=== PATIENT | male | born 1960 | race Two or more races ===

== ENCOUNTER 2019-11-16 15:13 | Inpatient (IN) | payer MEDICARE, MEDICAID ==
[~2019-11-16] VITALS: Ht 185.4 cm; Wt 93.0 kg
[2019-11-16] MEDS ORDERED: LAMICTAL200 MG ORAL (15:15)
[2019-11-16 15:18] VITALS: BP 158/90
--- NOTE | 2019-11-16 15:20 | NUR ---
ED Nurse Note: pt brought in by ambulance from home due to SOB not resolving after inhaler. pt aao x4 and ambulatory. no cardiac or pulmonary distress noted at this time. pt stated "I felt like dying earlier because i could not breathe well even after inhaler." skin clean and intact. calm and cooperative. pt is in gown and on registered nurse cardiac telemetry. vss as documented.
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
[2019-11-16 16:21] LABS: POTASSIUM 3.7 MMOL/L (3.5-5.1); SODIUM 143 MMOL/L (136-145)
[2019-11-16 16:27] LABS: BASOPHILS % (AUTO) 0.7 % (0.0-2.0); EOSINOPHILS % (AUTO) 0.8 % (0.0-3.0); HEMATOCRIT 44.9 % (42.0-52.0); HEMOGLOBIN 14.9 G/DL (14.2-18.0); MEAN CORPUSCULAR VOLUME 93 FL (80-99); MONOCYTES % (AUTO) 6.4 % (1.0-10.0); NEUTROPHILS % (AUTO) 67.1 % (45.0-75.0); PLATELET COUNT 210 K/UL (150-450); RED BLOOD COUNT 4.81 M/UL (4.70-6.10); RED CELL DISTRIBUTION WIDTH 11.7 % (11.6-14.8); WHITE BLOOD COUNT 3.7 K/UL (4.8-10.8)
[2019-11-16 16:33] LABS: ANION GAP 12 mmol/L (5-15); BLOOD UREA NITROGEN 15 mg/dL (7-18); CALCIUM 9.2 MG/DL (8.5-10.1); CARBON DIOXIDE 27 MMOL/L (21-32); CHLORIDE 104 MMOL/L (98-107)
--- NOTE | 2019-11-16 16:42 | Diagnostic Imaging Report ---
EXAM: XR Chest, 1 View CLINICAL HISTORY: CP TECHNIQUE: Frontal view of the chest. COMPARISON: No relevant prior studies available. FINDINGS: Lungs: Unremarkable. No consolidation. Pleural space: Mild left lung base pleural thickening. No definite pleural effusion. No pneumothorax. Heart: Unremarkable. No cardiomegaly. Mediastinum: Unremarkable. Bones/joints: Mild degenerative changes of the spine. IMPRESSION: Mild left lung base pleural thickening, may be chronic. Otherwise unremarkable.
[2019-11-16 16:47] LABS: ALANINE AMINOTRANSFERASE 46 U/L (12-78); ALBUMIN 4.2 G/DL (3.4-5.0); ALBUMIN/GLOBULIN RATIO 1.4 (1.0-2.7); ALKALINE PHOSPHATASE 73 U/L (46-116); ASPARTATE AMINO TRANSFERASE 21 U/L (15-37); BILIRUBIN,TOTAL 0.4 MG/DL (0.2-1.0); CREATINE KINASE 74 U/L (26-308)
[2019-11-16 17:23] LABS: APPEARANCE,URINE CLEAR; BILIRUBIN, URINE NEGATIVE (NEGATIVE); GLUCOSE, URINE (UA) NEGATIVE (NEGATIVE); KETONES,URINE NEGATIVE (NEGATIVE); LEUKOCYTE ESTERASE ,URINE NEGATIVE (NEGATIVE); NITRITE,URINE NEGATIVE (NEGATIVE); PH,URINE 5 (4.5-8.0); PROTEIN,URINE NEGATIVE (NEGATIVE); UROBILINOGEN,URINE NORMAL MG/DL (0.0-1.0)
[2019-11-16 17:25] LABS: COLOR,URINE YELLOW
--- NOTE | 2019-11-16 19:03 | NUR ---
ED Nurse Note: report received from Ephraim Porras RN; pt in stable condition resting in bed. VSS.
--- NOTE | 2019-11-16 19:04 | NUR ---
HAND-OFF: Report given to GRACIELA Oliva. no orders to carry at this time.
[2019-11-16 19:20] VITALS: BP 124/64
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
--- NOTE | 2019-11-16 20:00 | NUR ---
ED Nurse Note: ERMD at bedside
--- NOTE | 2019-11-16 20:15 | NUR ---
ED Nurse Note: all medications administered; pt tolerated well, no ss of distress noted. no adverse reactions noted.
[2019-11-16 21:49] VITALS: BP_SYST 112; BP_SYST 124; BP_DIAS 66
--- NOTE | 2019-11-16 22:33 | NUR ---
ED Nurse Note: pt resting in bed, no ss of distress noted. vss.
--- NOTE | 2019-11-16 22:35 | NUR ---
ED Nurse Note: Pt moved to hospital bed. VSS no ss of distress noted.
[2019-11-16 22:50] VITALS: BP 112/72
--- NOTE | 2019-11-16 23:30 | NUR ---
ED Nurse Note: Repeat troponin sent to lab.
[2019-11-17] VITALS (8 sets, daily range): BP systolic 110–136; BP diastolic 64–90
--- NOTE | 2019-11-17 00:46 | NUR ---
ED Nurse Note: pt resting in bed. no ss of distress noted.
--- NOTE | 2019-11-17 02:35 | NUR ---
ED Nurse Note: pt sleeping in bed, no ss of distress noted. vss.
--- NOTE | 2019-11-17 04:10 | NUR ---
ED Nurse Note: pt sleeping in bed. vss no ss of distress noted.
--- NOTE | 2019-11-17 06:38 | NUR ---
ED Nurse Note: Repeat troponin sent to lab
--- NOTE | 2019-11-17 07:14 | NUR ---
ED Nurse Note: report given to GRACIELA Lozano
--- NOTE | 2019-11-17 07:51 | NUR ---
ED Nurse Note: Repor given to Glo OWENS
--- NOTE | 2019-11-17 08:00 | NUR ---
NURSE NOTES: Received patient from E.R via bed, report was given by GRACIELA Lozano. Transferred to room 218-2. PAtient is alert and oriented x 4. Roy patient to room and telemetry unit. youth nutritional monitor is in placed. Patient is on sinus rhythm at this time. Patient is on cardiac diet-instructed. IV site on left AC g-20 saline lock that is patent and intact. Belonging lists checked and signed. No signs and symptoms of respiratory distress at the moment. Safety measures are in placed. Call light and bedside table within reach, bed in lowest and locked position. Encouraged to call for assitance. Plan opf care discussed, verbalized understanding.
--- NOTE | 2019-11-17 11:22 | NUR ---
NURSE NOTES: Received order from Dr. Garcia, patient is schedule for dialysis tomorrow, November 16, 2019. Secured consent, available at chart. Called [facility] and spoke to leticia and he'll call the HD nurse. Addendum: 11/17/19 at 1216 by Glo Pepe RN wrong entry.
[2019-11-17] MEDS: LaMICtal 150mg tab ORAL SCH (14:34)
--- NOTE | 2019-11-17 19:27 | NUR ---
HAND-OFF: Report given to Deepika OWENS. Patient is on stable condition, plan of care endorsed.
--- NOTE | 2019-11-17 20:08 | NUR ---
NURSE NOTES: Received report from Glo RN and GRACIELA Soria. Patient on semi-walsh's position. No signs of acute distress or shortness of breath. Currently on 2L of oxygen per nasal cannula. IV site intact and flushed. No erythema, bleeding, or infiltration. Bed in lowest position. Brakes engaged. Side rails x2 raised. Call light placed within reach.
--- NOTE | 2019-11-17 20:30 | History and Physical Report ---
DATE OF ADMISSION: 11/17/2019 HISTORY OF PRESENT ILLNESS: The patient comes in because of chest pain and shortness of breath, admitted to rule out acute coronary syndrome. The patient has been having episodes of shortness of breath and chest pain off and on. He states that it has been going on for a while, but at this time, it was worse in severity. The patient also has history of PTSD as well as anxiety. He denies feeling of doom, however, did have chest pressure and also has had some neck pain as well as some presyncopal episodes, symptoms like dizziness and lightheadedness, however, no syncopal episode. The patient was discharged from the emergency room approximately two weeks ago and nothing was found. The patient does have history of smoking and also uses THC as well and also takes Lamictal for anxiety. Denies sore throat. He does have some dry cough and anxiety for the past couple of days. Denies fever or chills. He is admitted for rule-out acute coronary syndrome and also for SOB workup. The patient complains of belching. He denies heartburn. PAST MEDICAL HISTORY: PTSD, anxiety, and has had history of bipolar as well. Past medical history also significant as before mentioned and also rectal cancer. PAST SURGICAL HISTORY: Removal of rectal cancer and ear surgery. SOCIAL HISTORY: He does have history of smoking. Does have history of marijuana. Denies history of alcohol abuse. ALLERGIES: Allergies to . MEDICATIONS: The patient takes Lamictal. FAMILY HISTORY: Noncontributory. REVIEW OF SYSTEMS: HEENT: Denies headaches. RESPIRATORY: Reports shortness of breath and dry cough for days. CARDIOVASCULAR: Reports chest pain with neck pain. No radiation to the arm. Denies palpitation. Denies wheezing. He does have dry cough for the past couple of days. GASTROINTESTINAL: Reports belching. No heartburn. No nausea or vomiting. No rectal bleeding. EXTREMITIES: Denies pain in lower extremities. CENTRAL NERVOUS SYSTEM: Denies change in speech pattern. PHYSICAL EXAMINATION: VITAL SIGNS: Temperature is 97, pulse is 69, blood pressure is 111/64. HEENT: PERRLA. NECK: Supple. No lymphadenopathy. CHEST: Clear to auscultation. CARDIOVASCULAR: Regular rate and rhythm. No murmurs or extra sounds. GASTROINTESTINAL: Soft, nontender, nondistended. No organomegaly. EXTREMITIES: No edema. Moves all four extremities. Sensory intact to light touch. Reflexes equal on both sides. Moves all four extremities. Dorsalis pedis pulses are present. LABORATORY AND DIAGNOSTIC DATA: Chest x-ray is normal. WBC of 3.7, hemoglobin of 14.9, platelets of 210,000. Sodium 143, potassium 3.7, BUN of 15, creatinine of 1, glucose of 146. Troponin 0.011. EKG, no significant changes. ASSESSMENT AND PLAN: 1. Chest pain, rule out acute coronary syndrome. 2. Near-syncope. 3. Shortness of breath. 4. Anxiety. 5. PTSD. I have asked Dr. Rucker, Dr. Marion, and Dr. Black to see the patient to help with the management of the above-mentioned symptoms, diagnoses, and abnormalities. We will try to rule out for acute coronary syndrome. Stress studies will be deferred per Dr. Ruiz. Abran Snow M.D. DR: RAFAEL JOB#: [id number] CC:
[2019-11-17] MEDS ORDERED: LORazepam 0.5mg tab ORAL PRN (23:00)
[2019-11-18] VITALS: BP 118/73
--- NOTE | 2019-11-18 00:15 | Consultation ---
DATE OF CONSULTATION: 11/17/2019 CONSULTING PHYSICIAN: Mendez Black M.D. HISTORY OF PRESENT ILLNESS: This is a 59-year-old male with a history of bipolar disorder, anxiety, PTSD, rectal cancer, who has been admitted to the hospital due to shortness of breath and chest pain. The patient is presenting with dizziness, lightheadedness, and anxiety. The patient takes Lamictal for bipolar disorder. Depressive symptoms are stable. He denies any suicidal or homicidal ideation. PAST PSYCHIATRIC HISTORY: Bipolar disorder. PAST MEDICAL HISTORY: As above. ALLERGIES: Steroids. SUBSTANCE ABUSE HISTORY: The patient is a smoker. No illicit drug use or alcohol. MENTAL STATUS EXAMINATION: He is alert and oriented to self, place, and situation. Mood is depressed. Affect is constricted, congruent with mood. Thought process is concrete. Thought content, no suicidal or homicidal ideation. Cognition is intact. Insight and judgment is fair. ASSESSMENT: AXIS I: Bipolar disorder. AXIS II: Deferred. AXIS III: As above. AXIS IV: Low. AXIS V: 50. PLAN: 1. Lamictal 300 mg daily. 2. Ativan p.r.n. 3. Provide the patient with reality orientation and supportive therapy. Mendez Black M.D. DR: WOLF JOB#: [id number] CC: LORNA
[2019-11-18 04:00] VITALS: BP 118/69
--- NOTE | 2019-11-18 04:49 | NUR ---
NURSE NOTES: Patient is asleep on bed. Vital signs stable. able to make needs known. Needs met. Call light placed within reach. Will continue to monitor.
--- NOTE | 2019-11-18 07:13 | NUR ---
HAND-OFF: Report given to GRACIELA Lau. Plan of care endorsed.
[2019-11-18 07:38] LABS: BASOPHILS % (AUTO) 1.4 % (0.0-2.0); EOSINOPHILS % (AUTO) 2.4 % (0.0-3.0); HEMATOCRIT 42.3 % (42.0-52.0); HEMOGLOBIN 14.9 G/DL (14.2-18.0); LYMPHOCYTES % (AUTO) 36.6 % (20.0-45.0); MEAN CORPUSCULAR VOLUME 90 FL (80-99); MONOCYTES % (AUTO) 10.1 % (1.0-10.0); NEUTROPHILS % (AUTO) 49.4 % (45.0-75.0); PLATELET COUNT 205 K/UL (150-450); RED BLOOD COUNT 4.67 M/UL (4.70-6.10); RED CELL DISTRIBUTION WIDTH 10.6 % (11.6-14.8); WHITE BLOOD COUNT 4.1 K/UL (4.8-10.8)
--- NOTE | 2019-11-18 07:41 | NUR ---
NURSE NOTES: Received report from GRACIELA Poole. Patient in bed resting, no active s/s cardiac, respiratory distress noticed at this time. Patient AOx4, SR with HR 63, on room air. IV on left AC 20G, asymptomatic, patent, intact. Bed in lowest position, side rails upx2, call light within reach. Will continue to monitor.
[2019-11-18 08:00] VITALS: BP 123/81
[2019-11-18 08:19] LABS: ALANINE AMINOTRANSFERASE 42 U/L (12-78); ALBUMIN 3.7 G/DL (3.4-5.0); ALBUMIN/GLOBULIN RATIO 1.3 (1.0-2.7); ALKALINE PHOSPHATASE 70 U/L (46-116); ANION GAP 10 mmol/L (5-15); ASPARTATE AMINO TRANSFERASE 17 U/L (15-37); BILIRUBIN,TOTAL 0.3 MG/DL (0.2-1.0); BLOOD UREA NITROGEN 14 mg/dL (7-18); CALCIUM 9.3 MG/DL (8.5-10.1); CARBON DIOXIDE 25 MMOL/L (21-32); CHLORIDE 108 MMOL/L (98-107); CREATININE 0.9 MG/DL (0.55-1.30); POTASSIUM 4.1 MMOL/L (3.5-5.1); SODIUM 143 MMOL/L (136-145)
[2019-11-18] MEDS: LaMICtal 150mg tab ORAL SCH (08:42)
[2019-11-18 12:00] VITALS: BP 143/87
--- NOTE | 2019-11-18 13:06 | NUR ---
CASE MANAGEMENT: INITIAL REVIEW 59YR OLD MALE BIBA FROM HOME CC: CHEST PAIN AND SOB/ DRY COUGH AND CHILLS FOR MORE THAN 2 WEEKS SI:CHEST PAIN 97.0 108 16 158/90 98% ON RA WBC 3.7 BG 146 IS:IVF NS BOLUS X1 ASA PO X1 MOTRIN PO X1 CHEST X-RAY- Mild left lung base pleural thickening, may be chronic \: 2E TELE UNIT CASE MANAGEMENT: REVIEW 11/18/19 SI:CHEST PAIN . NEAR SYNCOPE 98.1 74 18 143/87 99% ON 1L CL- 108 WBC 4.1 IS:LAMICTAL PO QD TYLENOL PO Q4HR/PRN \: 2E TELE UNIT
--- NOTE | 2019-11-18 13:41 | Cardiac Electrophysiology PN ---
Subjective Subjective [id number] Objective Last 24 Hour Vital Signs Date Time Temp Pulse Resp B/P (MAP) Pulse Ox O2 Delivery O2 Flow Rate FiO2 11/18/19 12:00 1.0 11/18/19 12:00 66 11/18/19 12:00 98.1 74 18 143/87 (105) 99 11/18/19 09:00 Nasal Cannula 1.0 11/18/19 08:00 98.1 68 18 123/81 (95) 98 11/18/19 08:00 1.0 11/18/19 08:00 67 11/18/19 04:00 98.2 63 18 118/69 (85) 99 11/18/19 04:00 1.0 11/18/19 04:00 58 11/18/19 00:00 0.5 11/18/19 00:00 97.9 65 18 118/73 (88) 98 11/18/19 00:00 68 11/17/19 21:00 Nasal Cannula 1.0 11/17/19 20:00 0.5 11/17/19 20:00 98.1 76 18 116/65 (82) 98 11/17/19 20:00 70 11/17/19 16:00 98.1 69 18 120/76 (91) 98 11/17/19 16:00 0.5 11/17/19 16:00 72 Intake and Output 11/17/19 11/18/19 19:00 07:00 Intake Total 360 ml 240 ml Balance 360 ml 240 ml Intake Oral 360 ml 240 ml # Voids 2 1 Laboratory Tests Test 11/18/19 06:50 White Blood Count 4.1 K/UL (4.8-10.8) L Red Blood Count 4.67 M/UL (4.70-6.10) L Hemoglobin 14.9 G/DL (14.2-18.0) Hematocrit 42.3 % (42.0-52.0) Mean Corpuscular Volume 90 FL (80-99) Mean Corpuscular Hemoglobin 31.9 PG (27.0-31.0) H Mean Corpuscular Hemoglobin Concent 35.2 G/DL (32.0-36.0) Red Cell Distribution Width 10.6 % (11.6-14.8) L Platelet Count 205 K/UL (150-450) Mean Platelet Volume 6.3 FL (6.5-10.1) L Neutrophils (%) (Auto) 49.4 % (45.0-75.0) Lymphocytes (%) (Auto) 36.6 % (20.0-45.0) Monocytes (%) (Auto) 10.1 % (1.0-10.0) H Eosinophils (%) (Auto) 2.4 % (0.0-3.0) Basophils (%) (Auto) 1.4 % (0.0-2.0) Sodium Level 143 MMOL/L (136-145) Potassium Level 4.1 MMOL/L (3.5-5.1) Chloride Level 108 MMOL/L (98-107) H Carbon Dioxide Level 25 MMOL/L (21-32) Anion Gap 10 mmol/L (5-15) Blood Urea Nitrogen 14 mg/dL (7-18) Creatinine 0.9 MG/DL (0.55-1.30) Estimat Glomerular Filtration Rate > 60 mL/min (>60) Glucose Level 98 MG/DL (74-106) Calcium Level 9.3 MG/DL (8.5-10.1) Total Bilirubin 0.3 MG/DL (0.2-1.0) Aspartate Amino Transf (AST/SGOT) 17 U/L (15-37) Alanine Aminotransferase (ALT/SGPT) 42 U/L (12-78) Alkaline Phosphatase 70 U/L (46-116) Troponin I 0.000 ng/mL (0.000-0.056) Total Protein 6.6 G/DL (6.4-8.2) Albumin 3.7 G/DL (3.4-5.0) Globulin 2.9 g/dL Albumin/Globulin Ratio 1.3 (1.0-2.7) Luis Rucker MD Nov 18, 2019 13:40
[2019-11-18] MEDS ORDERED: Lexiscan 0.4mg/5ml syringe IV PRN (13:45)
[2019-11-18 16:00] VITALS: BP 132/90
--- NOTE | 2019-11-18 16:15 | Consultation ---
DATE OF CONSULTATION: 11/18/2019 CARDIOLOGY CONSULTATION CONSULTING PHYSICIAN: Luis Rucker M.D. REFERRING PHYSICIAN: Abran Snow M.D. REASON FOR CONSULTATION: Chest pain and shortness of breath. HISTORY OF PRESENT ILLNESS: The patient is a very pleasant 59-year-old gentleman with history of bipolar disorder, no diabetes or hypertension, presented to the emergency room with extreme shortness of breath and chest pain. The patient stated that he felt like he was dying. He also has history of anxiety. The patient stated that he had similar symptoms in 2010 and had a stress test at [place] that was normal. The patient was also evaluated 12 days ago in a different hospital and chest x-ray and blood work was done, and the patient was discharged. The patient uses THC. The last use was about 10 days ago. The patient's EKG showed normal sinus rhythm, otherwise normal electrocardiogram, and a Cardiology consultation was obtained for further evaluation and management. REVIEW OF SYSTEMS: Negative other than what was mentioned in the history of present illness. PAST MEDICAL HISTORY: As mentioned above. FAMILY HISTORY: Noncontributory. SOCIAL HISTORY: He denies smoke or drinking alcohol, though he uses THC. MEDICATIONS: Per reconciliation. PHYSICAL EXAMINATION: VITAL SIGNS: Blood pressure 143/87, pulse 74, respirations 18, and temperature 98.1. HEAD AND NECK: Showed no JVD. LUNGS: Clear. CARDIOVASCULAR: Shows regular S1 and S2 with no gallop or murmur. ABDOMEN: Soft. EXTREMITIES: No pitting edema. LABORATORY AND DIAGNOSTIC DATA: His labs show white count of 4.1, hemoglobin of 15, hematocrit 42, and platelet count 205,000. Sodium 142, potassium 4.1, BUN 14, and creatinine 0.9. Troponin negative x4. ASSESSMENT AND PLAN: 1. Chest pain. The pain is atypical. EKG is completely normal. The patient already was ruled out completely for myocardial infarction. We will order echocardiogram and schedule the patient for stress test for further evaluation and management. It is of note that his chest x-ray also showed mild left lung base pleural thickening, otherwise normal. 2. Bipolar disorder, on Lamictal 200 mg daily. 3. Shortness of breath. Echocardiogram is pending, but has no known history of congestive heart failure and his BNP is only 15. Thank you very much, Dr. Snow, for allowing me to participate in the care of this patient. Please do not hesitate to contact me for any questions regarding my evaluation. Luis Rucker M.D. DR: REESE JOB#: [id number] CC:
--- NOTE | 2019-11-18 17:42 | NUR ---
NURSE NOTES: Dr. Snow made aware patient c/o generalized pain 04/06, and patient refused Tylenol prn . No new order at this time. Will continue to monitor.
--- NOTE | 2019-11-18 17:58 | NUR ---
NURSE NOTES: Per Dr. Snow, Dr. White on the case. Paged Dr. White, Hari MG called back, no new order received at this time.
--- NOTE | 2019-11-18 19:21 | NUR ---
HAND-OFF: Report given to GRACIELA Larsen. Endorsed plan of care.
--- NOTE | 2019-11-18 20:04 | NUR ---
NURSE NOTES: Report received from Judi OWENS. Patient is observed in bed, awake, alert, roeinted, and able to make needs known. Respiratory even and unlabored. IV site is asymptomatic, patent, and intact. Bed is in lowest position with side rails up x2 and brakes are engaged. Patient refuses bed alarm. Call light and personal belongings are within reach. Will continue to monitor.
[2019-11-18 20:09] VITALS: BP 140/85
--- NOTE | 2019-11-18 20:49 | General Progress Note ---
Assessment/Plan Problem List: (1) Chest pain ICD Codes: R07.9 - Chest pain, unspecified SNOMED: 22538966 Qualifiers: Qualified Codes: R07.9 - Chest pain, unspecified (2) PTSD (post-traumatic stress disorder) ICD Codes: F43.10 - Post-traumatic stress disorder, unspecified SNOMED: 17119069 (3) Acute coronary syndrome ICD Codes: I24.9 - Acute ischemic heart disease, unspecified SNOMED: 439071943 (4) Near syncope ICD Codes: R55 - Syncope and collapse SNOMED: 080638144 Status: progressing Assessment/Plan: r/p acs cp anxiety ptsd check trop Subjective ROS Limited/Unobtainable: Yes Allergies: Uncoded Allergies: STEROID (Allergy, Unknown, 11/16/19) Objective Last 24 Hour Vital Signs Date Time Temp Pulse Resp B/P (MAP) Pulse Ox O2 Delivery O2 Flow Rate FiO2 11/18/19 20:09 97.2 65 16 140/85 (103) 97 11/18/19 20:07 Nasal Cannula 1.0 11/18/19 16:00 72 11/18/19 16:00 98.2 70 18 132/90 (104) 97 11/18/19 16:00 1.0 11/18/19 12:00 1.0 11/18/19 12:00 66 11/18/19 12:00 98.1 74 18 143/87 (105) 99 11/18/19 09:00 Nasal Cannula 1.0 11/18/19 08:00 98.1 68 18 123/81 (95) 98 11/18/19 08:00 1.0 11/18/19 08:00 67 11/18/19 04:00 98.2 63 18 118/69 (85) 99 11/18/19 04:00 1.0 11/18/19 04:00 58 11/18/19 00:00 0.5 11/18/19 00:00 97.9 65 18 118/73 (88) 98 11/18/19 00:00 68 11/17/19 21:00 Nasal Cannula 1.0 Intake and Output 11/17/19 11/18/19 19:00 07:00 Intake Total 360 ml 240 ml Balance 360 ml 240 ml Intake Oral 360 ml 240 ml # Voids 2 1 Laboratory Tests 11/18/19 06:50: White Blood Count 4.1L, Red Blood Count 4.67L, Hemoglobin 14.9, Hematocrit 42.3 , Mean Corpuscular Volume 90, Mean Corpuscular Hemoglobin 31.9H, Mean Corpuscular Hemoglobin Concent 35.2, Red Cell Distribution Width 10.6L, Platelet Count 205, Mean Platelet Volume 6.3L, Neutrophils (%) (Auto) 49.4, Lymphocytes (%) (Auto) 36.6, Monocytes (%) (Auto) 10.1H, Eosinophils (%) (Auto) 2.4, Basophils (%) (Auto) 1.4, Sodium Level 143, Potassium Level 4.1, Chloride Level 108H, Carbon Dioxide Level 25, Anion Gap 10, Blood Urea Nitrogen 14, Creatinine 0.9, Estimat Glomerular Filtration Rate > 60, Glucose Level 98, Calcium Level 9.3, Total Bilirubin 0.3, Aspartate Amino Transf (AST/SGOT) 17, Alanine Aminotransferase (ALT/SGPT) 42, Alkaline Phosphatase 70, Troponin I 0.000, Total Protein 6.6, Albumin 3.7, Globulin 2.9, Albumin/Globulin Ratio 1.3 Height (Feet): 6 Height (Inches): 1.00 Weight (Pounds): 215 Cardiovascular: normal rate Respiratory/Chest: lungs clear Abdomen: soft Abran Snow MD Nov 18, 2019 20:49
[2019-11-19] VITALS: BP 137/72
--- NOTE | 2019-11-19 00:46 | NUR ---
NURSE NOTES: Patient is asleep but arousable by voice. Respiratory even and unlabored. No c/o pain and/or discomfort at this time. Will continue to monitor.
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
[2019-11-19 04:00] VITALS: BP 109/82
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
[2019-11-19 07:27] LABS: BASOPHILS % (AUTO) 0.9 % (0.0-2.0); EOSINOPHILS % (AUTO) 1.6 % (0.0-3.0); HEMATOCRIT 45.8 % (42.0-52.0); HEMOGLOBIN 16.2 G/DL (14.2-18.0); LYMPHOCYTES % (AUTO) 29.8 % (20.0-45.0); MEAN CORPUSCULAR VOLUME 90 FL (80-99); MONOCYTES % (AUTO) 9.1 % (1.0-10.0); NEUTROPHILS % (AUTO) 58.6 % (45.0-75.0); PLATELET COUNT 234 K/UL (150-450); RED CELL DISTRIBUTION WIDTH 10.2 % (11.6-14.8); WHITE BLOOD COUNT 6.5 K/UL (4.8-10.8)
--- NOTE | 2019-11-19 07:30 | NUR ---
NURSE NOTES: Received pt from CHRISSY OWENS. Pt is awake and orient, pt is in RA, no SOB or acute respiratory distress noted. pt has intact iv access LAC 22G SL.Pt is NPO due to stress test. Pt is on continues heart monitoring. all needs attended, bed is locked and is in the lowest position, call light within easy reach. will continue to monitor.
--- NOTE | 2019-11-19 07:51 | NUR ---
HAND-OFF: Report given to Cain OWENS. Patient is in stable condition. Endorsed plan of care.
[2019-11-19 08:00] VITALS: BP 129/82
[2019-11-19] MEDS: LaMICtal 150mg tab ORAL SCH (09:00)
--- NOTE | 2019-11-19 11:05 | Diagnostic Imaging Report ---
Indication: Abdominal pain Technique: Grayscale and duplex Doppler imaging of the abdomen performed. Comparison: None Findings: The liver is echogenic consistent with fatty infiltration. Doppler interrogation of the main portal vein shows patency with hepatopedal, monophasic flow. There is no biliary ductal dilatation identified. Gallbladder is unremarkable. CBD is 2.8 mm. There demonstrated part of the pancreas, aorta and IVC show no definite abnormalities. Both kidneys appear unremarkable. There is no hydronephrosis. IMPRESSION: Fatty liver
--- NOTE | 2019-11-19 11:34 | Cardiac Electrophysiology PN ---
Assessment/Plan Assessment/Plan 1. Atyical Chest pain. EKG is completely normal. The patient already was ruled out completely for myocardial infarction. Echocardiogram NL EF and stress test results from today is pending. 2. Bipolar disorder, on Lamictal 200 mg daily. 3. Shortness of breath. Echocardiogram Nl EF but has no known history of congestive heart failure and his BNP is only 15. DW RN Subjective Subjective No CP or SOB. Stress test in progress Objective Last 24 Hour Vital Signs Date Time Temp Pulse Resp B/P (MAP) Pulse Ox O2 Delivery O2 Flow Rate FiO2 11/19/19 08:00 96.8 68 18 129/82 (98) 98 11/19/19 07:45 63 11/19/19 04:00 97.7 74 16 109/82 (91) 97 11/19/19 03:33 59 11/19/19 00:00 96.6 65 16 137/72 (93) 97 11/18/19 23:28 59 11/18/19 20:09 97.2 65 16 140/85 (103) 97 11/18/19 20:07 Nasal Cannula 1.0 11/18/19 19:00 70 11/18/19 16:00 72 11/18/19 16:00 98.2 70 18 132/90 (104) 97 11/18/19 16:00 1.0 11/18/19 12:00 1.0 11/18/19 12:00 66 11/18/19 12:00 98.1 74 18 143/87 (105) 99 Intake and Output 11/18/19 11/19/19 19:00 07:00 Intake Total 1000 ml Balance 1000 ml Intake Oral 1000 ml # Voids 4 2 # Bowel Movements 2 Laboratory Tests Test 11/19/19 06:35 White Blood Count 6.5 K/UL (4.8-10.8) # Red Blood Count 5.10 M/UL (4.70-6.10) Hemoglobin 16.2 G/DL (14.2-18.0) Hematocrit 45.8 % (42.0-52.0) Mean Corpuscular Volume 90 FL (80-99) Mean Corpuscular Hemoglobin 31.8 PG (27.0-31.0) H Mean Corpuscular Hemoglobin Concent 35.4 G/DL (32.0-36.0) Red Cell Distribution Width 10.2 % (11.6-14.8) L Platelet Count 234 K/UL (150-450) Mean Platelet Volume 6.3 FL (6.5-10.1) L Neutrophils (%) (Auto) 58.6 % (45.0-75.0) Lymphocytes (%) (Auto) 29.8 % (20.0-45.0) Monocytes (%) (Auto) 9.1 % (1.0-10.0) Eosinophils (%) (Auto) 1.6 % (0.0-3.0) Basophils (%) (Auto) 0.9 % (0.0-2.0) Hepatitis A IgM Antibody Pending Hepatitis B Surface Antigen Pending Hepatitis B Core IgM Antibody Pending Hepatitis C Antibody Pending HIV (1&2) Antibody Rapid Negative (NEGATIVE) Objective HEAD AND NECK: No JVD. LUNGS: Clear. CARDIOVASCULAR: Regular S1 and S2 with no gallop or murmur. ABDOMEN: Soft. EXTREMITIES: No pitting edema. Luis Rucker MD Nov 19, 2019 11:34
[2019-11-19 12:00] VITALS: BP 126/85
--- NOTE | 2019-11-19 12:33 | Consultation ---
History of Present Illness General Date patient seen: Nov 19, 2019 Chief Complaint: Present Illness Allergies: Uncoded Allergies: STEROID (Allergy, Unknown, 11/16/19) Medication History Scheduled Lamotrigine (Lamictal), 300 MG ORAL DAILY, (Reported) Patient History Healthcare decision maker Resuscitation status Full Code Advanced Directive on File No Physical Exam Last 24 Hour Vital Signs Date Time Temp Pulse Resp B/P (MAP) Pulse Ox O2 Delivery O2 Flow Rate FiO2 11/19/19 12:00 98.1 78 18 126/85 (99) 95 11/19/19 09:00 Nasal Cannula 1.0 11/19/19 08:00 96.8 68 18 129/82 (98) 98 11/19/19 07:45 63 11/19/19 04:00 97.7 74 16 109/82 (91) 97 11/19/19 03:33 59 11/19/19 00:00 96.6 65 16 137/72 (93) 97 11/18/19 23:28 59 11/18/19 20:09 97.2 65 16 140/85 (103) 97 11/18/19 20:07 Nasal Cannula 1.0 11/18/19 19:00 70 11/18/19 16:00 72 11/18/19 16:00 98.2 70 18 132/90 (104) 97 11/18/19 16:00 1.0 Intake and Output 11/18/19 11/19/19 19:00 07:00 Intake Total 1000 ml Balance 1000 ml Intake Oral 1000 ml # Voids 4 2 # Bowel Movements 2 Laboratory Tests Test 11/19/19 06:35 White Blood Count 6.5 K/UL (4.8-10.8) # Red Blood Count 5.10 M/UL (4.70-6.10) Hemoglobin 16.2 G/DL (14.2-18.0) Hematocrit 45.8 % (42.0-52.0) Mean Corpuscular Volume 90 FL (80-99) Mean Corpuscular Hemoglobin 31.8 PG (27.0-31.0) H Mean Corpuscular Hemoglobin Concent 35.4 G/DL (32.0-36.0) Red Cell Distribution Width 10.2 % (11.6-14.8) L Platelet Count 234 K/UL (150-450) Mean Platelet Volume 6.3 FL (6.5-10.1) L Neutrophils (%) (Auto) 58.6 % (45.0-75.0) Lymphocytes (%) (Auto) 29.8 % (20.0-45.0) Monocytes (%) (Auto) 9.1 % (1.0-10.0) Eosinophils (%) (Auto) 1.6 % (0.0-3.0) Basophils (%) (Auto) 0.9 % (0.0-2.0) Hepatitis A IgM Antibody Pending Hepatitis B Surface Antigen Pending Hepatitis B Core IgM Antibody Pending Hepatitis C Antibody Pending HIV (1&2) Antibody Rapid Negative (NEGATIVE) Height (Feet): 6 Height (Inches): 1.00 Weight (Pounds): 215 Medications Current Medications Medications (Trade) Dose Ordered Sig/Aaron Route PRN Reason Start Time Stop Time Status Last Admin Dose Admin Acetaminophen (Tylenol) 650 mg Q4H PRN ORAL Mild Pain/Temp > 100.5 11/17/19 08:30 12/17/19 08:29 11/18/19 18:34 Lamotrigine (LaMICtal) 300 mg DAILY ORAL 11/17/19 14:00 01/01/20 13:59 11/18/19 08:42 Lorazepam (Ativan) 1 mg Q6H PRN ORAL For Anxiety 11/17/19 23:00 11/24/19 22:59 Regadenoson (Lexiscan) 0.4 mg ONCE PRN IV STRESS TEST 11/18/19 13:45 02/16/20 13:44 11/19/19 10:58 Assessment/Plan Assessment/Plan: (1) Chest pain (2) R/O ACS seen dictated Hari Gaona Nov 19, 2019 12:33
--- NOTE | 2019-11-19 14:33 | Diagnostic Imaging Report ---
Indication: chest pain Technique: The study was conducted under the supervision of a lead net software developer. lexiscan (regadenoson) infusion over 10 seconds followed by intravenous administration of 30.9 mCi of technetium 99m Myoview was performed. Three plane SPECT imaging of the heart was then performed. A resting study was performed as part of the one-day protocol with 10.6 mCi of technetium 99m myoview injected intravenously at that time. Three plane SPECT imaging of the heart was obtained. Comparison: None Clinical data: 1. Clinical response: Non ischemic 2. Electrocardiographic response: Non ischemic Findings: The myocardial perfusion scan demonstrates LVEF 66%. No fixed or reversible perfusion defects are appreciated. IMPRESSION: Negative myocardial perfusion scan
[2019-11-19 15:53] VITALS: BP 119/60
--- NOTE | 2019-11-19 18:00 | Consultation ---
DATE OF CONSULTATION: 11/19/2019 PAIN MANAGEMENT CONSULTATION CONSULTING PHYSICIAN: Daysi White M.D. REFERRING PHYSICIAN: Abran Snow M.D. PHYSICIAN BARREL INSPECTOR: SAURAV Ibanez CHIEF COMPLAINT: Chest pain. HISTORY OF PRESENT ILLNESS: This is a 59-year-old male who is being seen on telemetry floor of [facility] for initial pain management consultation. The patient was admitted under the care of Dr. Snow due to chest pain and has been seen by Cardiology. At this time, EKG was done and going for stress test as well. At this time, the patient is comfortable. Reports that overnight, he had some increased chest pain with pain radiating from his chest into his back and up into his neck; however, at this time, he is comfortable using Tylenol as needed. Reports that he has used it and it reduces pain and no longer having pain at this time. We were consulted, so the patient would have adequate pain control while here in the hospital. PAST MEDICAL HISTORY: Posttraumatic stress disorder, anxiety, bipolar disorder. PAST SURGICAL HISTORY: Rectal surgery. SOCIAL HISTORY: Denies smoking tobacco, drinking alcohol, or IV drug abuse. ALLERGIES: Steroids MEDICATIONS: Lamictal. REVIEW OF SYSTEMS: Denies rash, fever, chills, sweating, dizziness, drowsiness, blurred vision, sore throat, change in hearing or weight. No shortness of breath or chest pain. No nausea, vomiting, or blood in the stool. No dysuria. PHYSICAL EXAMINATION: GENERAL: Alert, awake, and oriented. VITAL SIGNS: Blood pressure 126/85, heart rate 70, oxygen saturation 95%, respirations 18, temperature 98.1 degrees Fahrenheit. LUNGS: Decreased breath sounds bilaterally. HEART: S1 and S2 regular. ABDOMEN: Soft, nontender. BACK: Range of motion is full on flexion and extension. EXTREMITIES: Upper and lower extremities range of motion is full. No cyanosis. No clubbing. No edema. Sensory is intact. Reflexes are not obtainable. No adenopathy. ASSESSMENT AND PLAN: This is a 59-year-old male with chest pain, rule out ACS. The patient will be continued on Tylenol as needed. The patient was discussed with Dr. White and Dr. White concurred. We will follow the patient. Thank you very much for the courtesy of this consultation. Daysi White M.D. SAURAV Ibanez DR: MIKE JOB#: [id number] CC:
--- NOTE | 2019-11-19 19:09 | NUR ---
HAND-OFF: Report given to JENNY OWENS. Pt is awake and stable.
[2019-11-19 20:00] VITALS: BP 138/86
--- NOTE | 2019-11-19 21:06 | General Progress Note ---
Assessment/Plan Problem List: (1) Chest pain ICD Codes: R07.9 - Chest pain, unspecified SNOMED: 33266907 Qualifiers: Qualified Codes: R07.9 - Chest pain, unspecified (2) PTSD (post-traumatic stress disorder) ICD Codes: F43.10 - Post-traumatic stress disorder, unspecified SNOMED: 24957841 (3) Acute coronary syndrome ICD Codes: I24.9 - Acute ischemic heart disease, unspecified SNOMED: 342023003 (4) Near syncope ICD Codes: R55 - Syncope and collapse SNOMED: 433365506 Status: progressing Assessment/Plan: did stress test today neg trop afebrile r/p acs cp anxiety ptsd Subjective ROS Limited/Unobtainable: Yes Allergies: Uncoded Allergies: STEROID (Allergy, Unknown, 11/16/19) Objective Last 24 Hour Vital Signs Date Time Temp Pulse Resp B/P (MAP) Pulse Ox O2 Delivery O2 Flow Rate FiO2 11/19/19 16:14 67 11/19/19 15:53 98.1 63 20 119/60 (79) 98 11/19/19 12:00 98.1 78 18 126/85 (99) 95 11/19/19 11:52 73 11/19/19 09:00 Nasal Cannula 1.0 11/19/19 08:00 96.8 68 18 129/82 (98) 98 11/19/19 07:45 63 11/19/19 04:00 97.7 74 16 109/82 (91) 97 11/19/19 03:33 59 11/19/19 00:00 96.6 65 16 137/72 (93) 97 11/18/19 23:28 59 Intake and Output 11/18/19 11/19/19 19:00 07:00 Intake Total 1000 ml Balance 1000 ml Intake Oral 1000 ml # Voids 4 2 # Bowel Movements 2 Laboratory Tests 11/19/19 06:35: White Blood Count 6.5#, Red Blood Count 5.10, Hemoglobin 16.2, Hematocrit 45.8, Mean Corpuscular Volume 90, Mean Corpuscular Hemoglobin 31.8H, Mean Corpuscular Hemoglobin Concent 35.4, Red Cell Distribution Width 10.2L, Platelet Count 234, Mean Platelet Volume 6.3L, Neutrophils (%) (Auto) 58.6, Lymphocytes (%) (Auto) 29.8, Monocytes (%) (Auto) 9.1, Eosinophils (%) (Auto) 1.6, Basophils (%) (Auto ) 0.9, Hepatitis A IgM Antibody [Pending], Hepatitis B Surface Antigen [Pending] , Hepatitis B Core IgM Antibody [Pending], Hepatitis C Antibody [Pending], HIV ( 1&2) Antibody Rapid Negative Height (Feet): 6 Height (Inches): 1.00 Weight (Pounds): 215 Cardiovascular: normal rate Abran Snow MD Nov 19, 2019 21:06
--- NOTE | 2019-11-19 23:30 | Progress Note ---
DATE: 11/19/2019 SUBJECTIVE: The patient is doing well and is anxious and has flashbacks. Poor insight. MENTAL STATUS EXAMINATION: Alert and oriented times self, place, and situation. Mood is neutral. Affect is flat. Thought process is concrete. Thought content, no suicidal or homicidal ideation. Cognition is intact. Insight and judgment are fair. ASSESSMENT: Posttraumatic stress disorder. PLAN: Provide the patient with reality orientation and supportive therapy. Mendez Black M.D. DR: GIOVANNY JOB#: [id number] CC:
[2019-11-20] VITALS: BP 130/74
[2019-11-20 04:00] VITALS: BP 146/79
--- NOTE | 2019-11-20 07:01 | NUR ---
HAND-OFF: Report given to NURSE PEDRAZA. PT. DENIES PAIN..
--- NOTE | 2019-11-20 07:45 | NUR ---
NURSE NOTES: Received patient awake, alert, oreintedx4 in bed. able to make needs known. Respiratory even and unlabored. IV site is asymptomatic, patent, and intact. Bed is in lowest position with side rails up x2 and brakes are engaged. SCD's are off and explained the indications and importance. Call light within reach. All 4P's are within reach. Will continue to monitor.
[2019-11-20 08:00] VITALS: BP 110/71
[2019-11-20] MEDS ORDERED: Cyclobenzaprine 10mg Tab ORAL PRN (08:00)
--- NOTE | 2019-11-20 08:10 | Hematology/Onc Progress Note ---
Assessment/Plan Assessment/Plan Assessment and Recs # Leukopenia with decreased wbc approx 3.7-->4.1-->6 --> peripheral smear has been noted, and no abnml white cells noted --> us of the abdomen--> shows fatty liver --> hep and hiv both neg --> abx as needed # Chest pain --> r/o acs --> trop as needed --> per cars, recs noted # Mild left lung base pleural thickening, may be chronic. --> appears chronic # Near syncope --> ivf prn basis -> echo # PTSD (post-traumatic stress disorder) --> psych has been consulted # Anxiety --> ativan prn Appreciate consultation and discussed with Rn Subjective HEENT: Denies: no symptoms, eye pain, blurred vision, tearing, double vision, ear pain, ear discharge, nose pain, nose congestion, throat pain, throat swelling, mouth pain, mouth swelling, other Cardiovascular: Denies: no symptoms, chest pain, edema, irregular heart rate, lightheadedness, palpitations, syncope, other Respiratory: Denies: no symptoms, cough, shortness of breath, SOB with excertion, SOB at rest, sputum, wheezing, other Gastrointestinal/Abdominal: Denies: no symptoms, abdomen distended, abdominal pain, black stools, tarry stools, blood in stool, constipated, diarrhea, difficulty swallowing, nausea, poor appetite, poor fluid intake, rectal bleeding , vomiting, other Genitourinary: Denies: no symptoms, burning, discharge, frequency, flank pain, hematuria, incontinence, pain, urgency, other Neurologic/Psychiatric: Denies: no symptoms, anxiety, depressed, emotional problems, headache, numbness, paresthesia, pre-existing deficit, seizure, tingling, tremors, weakness, other Endocrine: Denies: no symptoms, excessive sweating, flushing, intolerance to cold, intolerance to heat, increased hunger, increased thirst, increased urine, unexplained weight gain, unexplained weight loss, other Hematologic/Lymphatic: Denies: no symptoms, anemia, easy bleeding, easy bruising, adenopathy, other Allergies: Uncoded Allergies: STEROID (Allergy, Unknown, 11/16/19) Subjective 11/19 no events, no bleeding, no night sweats, labs noted Objective Objective Current Medications Medications (Trade) Dose Ordered Sig/Aaron Route PRN Reason Start Time Stop Time Status Last Admin Dose Admin Acetaminophen (Tylenol) 650 mg Q4H PRN ORAL Mild Pain/Temp > 100.5 11/17/19 08:30 12/17/19 08:29 11/19/19 18:34 Cyclobenzaprine HCl (Flexeril) 10 mg Q12H PRN ORAL Muscle Spasm 11/20/19 08:00 12/20/19 07:59 Lamotrigine (LaMICtal) 300 mg DAILY ORAL 11/17/19 14:00 01/01/20 13:59 11/18/19 08:42 Lorazepam (Ativan) 1 mg Q6H PRN ORAL For Anxiety 11/17/19 23:00 11/24/19 22:59 Regadenoson (Lexiscan) 0.4 mg ONCE PRN IV STRESS TEST 11/18/19 13:45 02/16/20 13:44 11/19/19 10:58 Last 24 Hour Vital Signs Date Time Temp Pulse Resp B/P (MAP) Pulse Ox O2 Delivery O2 Flow Rate FiO2 11/20/19 04:00 97.5 64 20 146/79 (101) 97 11/20/19 04:00 69 11/20/19 00:00 96.6 63 130/74 (92) 11/20/19 00:00 75 11/19/19 21:00 Nasal Cannula 1.0 11/19/19 21:00 99 11/19/19 20:00 95.7 76 20 138/86 (103) 97 11/19/19 16:14 67 11/19/19 15:53 98.1 63 20 119/60 (79) 98 11/19/19 12:00 98.1 78 18 126/85 (99) 95 11/19/19 11:52 73 11/19/19 09:00 Nasal Cannula 1.0 11/19/19 08:00 96.8 68 18 129/82 (98) 98 11/19/19 07:45 63 11/19/19 04:00 97.7 74 16 109/82 (91) 97 11/19/19 03:33 59 11/19/19 00:00 96.6 65 16 137/72 (93) 97 11/18/19 23:28 59 11/18/19 20:09 97.2 65 16 140/85 (103) 97 11/18/19 20:07 Nasal Cannula 1.0 11/18/19 19:00 70 11/18/19 16:00 72 11/18/19 16:00 98.2 70 18 132/90 (104) 97 11/18/19 16:00 1.0 11/18/19 12:00 1.0 11/18/19 12:00 66 11/18/19 12:00 98.1 74 18 143/87 (105) 99 11/18/19 09:00 Nasal Cannula 1.0 Intake and Output 11/19/19 11/20/19 19:00 07:00 Intake Total 820 ml Balance 820 ml Intake Oral 820 ml # Voids 3 2 # Bowel Movements 2 Labs Test 11/18/19 06:50 11/19/19 06:35 White Blood Count 4.1 K/UL (4.8-10.8) 6.5 K/UL (4.8-10.8) Red Blood Count 4.67 M/UL (4.70-6.10) 5.10 M/UL (4.70-6.10) Hemoglobin 14.9 G/DL (14.2-18.0) 16.2 G/DL (14.2-18.0) Hematocrit 42.3 % (42.0-52.0) 45.8 % (42.0-52.0) Mean Corpuscular Volume 90 FL (80-99) 90 FL (80-99) Mean Corpuscular Hemoglobin 31.9 PG (27.0-31.0) 31.8 PG (27.0-31.0) Mean Corpuscular Hemoglobin Concent 35.2 G/DL (32.0-36.0) 35.4 G/DL (32.0-36.0) Red Cell Distribution Width 10.6 % (11.6-14.8) 10.2 % (11.6-14.8) Platelet Count 205 K/UL (150-450) 234 K/UL (150-450) Mean Platelet Volume 6.3 FL (6.5-10.1) 6.3 FL (6.5-10.1) Neutrophils (%) (Auto) 49.4 % (45.0-75.0) 58.6 % (45.0-75.0) Lymphocytes (%) (Auto) 36.6 % (20.0-45.0) 29.8 % (20.0-45.0) Monocytes (%) (Auto) 10.1 % (1.0-10.0) 9.1 % (1.0-10.0) Eosinophils (%) (Auto) 2.4 % (0.0-3.0) 1.6 % (0.0-3.0) Basophils (%) (Auto) 1.4 % (0.0-2.0) 0.9 % (0.0-2.0) Sodium Level 143 MMOL/L (136-145) Potassium Level 4.1 MMOL/L (3.5-5.1) Chloride Level 108 MMOL/L (98-107) Carbon Dioxide Level 25 MMOL/L (21-32) Anion Gap 10 mmol/L (5-15) Blood Urea Nitrogen 14 mg/dL (7-18) Creatinine 0.9 MG/DL (0.55-1.30) Estimat Glomerular Filtration Rate > 60 mL/min (>60) Glucose Level 98 MG/DL (74-106) Calcium Level 9.3 MG/DL (8.5-10.1) Total Bilirubin 0.3 MG/DL (0.2-1.0) Aspartate Amino Transf (AST/SGOT) 17 U/L (15-37) Alanine Aminotransferase (ALT/SGPT) 42 U/L (12-78) Alkaline Phosphatase 70 U/L (46-116) Troponin I 0.000 ng/mL (0.000-0.056) Total Protein 6.6 G/DL (6.4-8.2) Albumin 3.7 G/DL (3.4-5.0) Globulin 2.9 g/dL Albumin/Globulin Ratio 1.3 (1.0-2.7) Hepatitis A IgM Antibody Negative (Negative) Hepatitis B Surface Antigen Negative (Negative) Hepatitis B Core IgM Antibody Negative (Negative) Hepatitis C Antibody 0.2 s/co ratio (0.0-0.9) HIV (1&2) Antibody Rapid Negative (NEGATIVE) Height (Feet): 6 Height (Inches): 1.00 Weight (Pounds): 215 Objective Physical Exam Vitals: reviewed, normal General: well appearing, no apparent distress, GCS 15 Heent: normocephalic, atraumatic Neck: supple Respiratory: chest non-tender, lungs clear, normal breath sounds Cardiovascular: regular rate, rhythm, no edema Gi: normal inspection, normal bowel sounds, non tender Msk: back normal, normal range of motion Neuro: alert, oriented x3, grossly normal Claudio Gibbs MD Nov 20, 2019 08:10
[2019-11-20] MEDS: LaMICtal 150mg tab ORAL SCH (08:27)
--- NOTE | 2019-11-20 10:32 | NUR ---
CASE MANAGEMENT: REVIEW 11/20/19 SI:CHEST PAIN . NEAR SYNCOPE 98.3 75 21 110/71 97% ON 1L IS:LAMICTAL PO QD TYLENOL PO Q4HR/PRN FLEXERIL PO BID \: 2E TELE UNIT DCP: HOME WHEN STABLE PLAN: DOWNGRADE TO MED SURG UNIT STABILIZE ON MEDS OBTAIN APPOINTMENT WITH PSYCHIATRIC DOCTORS PATIENT CURRENTLY ACTIVE WITH PSYCHIATRIC DOCTORS TWICE A WEEK ENCOURAGE PATIENT TO HYDRATE ENCOURAGE PATIENT TO AMBULATE PATIENT VERY DEPRESS
--- NOTE | 2019-11-20 11:40 | NUR ---
TRANSFER TO FLOOR: Patient transferred to [facility], per Tonie. Report given to GRACIELA Segura. Belongings document and given to GRACIELA Segura. Pt is in stable condition, denies pain at this time. Addendum: 11/21/19 at 0046 by Dori Jeff RN Correction: Pt transferred at 2346.
[2019-11-20 11:47] VITALS: BP 122/66
--- NOTE | 2019-11-20 12:18 | NUR ---
CASE MANAGEMENT: NOTE SPOKE TO PATIENT AT BEDSIDE AT LENGTH PATIENT STATES HE HAS A STABLE AND SAFE PLACE FOR DISCHARGE PATIENT VERBALIZED HX OF PTSD PATIENT SOBBING PATIENT STATED STILL EXPERIENCING DIZZINESS ASKED FOR DISCHARGE FROM DR. QUILES PER DR QUILES; PATIENT NOT READY FOR DISCHARGE ASKED FOR DOWNGRADE FROM DR ROBERSON - NO RESPONSE AT THIS TIME CM TO F/U
--- NOTE | 2019-11-20 14:01 | Cardiac Electrophysiology PN ---
Assessment/Plan Assessment/Plan 1. Atyical Chest pain. EKG is completely normal. The patient already was ruled out completely for myocardial infarction. Echocardiogram NL EF and stress test showed no ischemia 2. Bipolar disorder, on Lamictal 200 mg daily. 3. Shortness of breath. Echocardiogram Nl EF and BNP is only 15. DW RN Subjective Subjective No CP or SOB. Stress test was nonischemic Objective Last 24 Hour Vital Signs Date Time Temp Pulse Resp B/P (MAP) Pulse Ox O2 Delivery O2 Flow Rate FiO2 11/20/19 13:13 66 11/20/19 11:47 98.2 96 21 122/66 (84) 96 11/20/19 09:58 Nasal Cannula 1.0 11/20/19 09:12 60 11/20/19 08:00 98.3 75 21 110/71 (84) 97 11/20/19 04:00 97.5 64 20 146/79 (101) 97 11/20/19 04:00 69 11/20/19 00:00 96.6 63 130/74 (92) 11/20/19 00:00 75 11/19/19 21:00 Nasal Cannula 1.0 11/19/19 21:00 99 11/19/19 20:00 95.7 76 20 138/86 (103) 97 11/19/19 16:14 67 11/19/19 15:53 98.1 63 20 119/60 (79) 98 Intake and Output 11/19/19 11/20/19 19:00 07:00 Intake Total 820 ml Balance 820 ml Intake Oral 820 ml # Voids 3 2 # Bowel Movements 2 Objective HEAD AND NECK: No JVD. LUNGS: Clear. CARDIOVASCULAR: Regular S1 and S2 with no gallop or murmur. ABDOMEN: Soft. EXTREMITIES: No pitting edema. Luis Rucker MD Nov 20, 2019 14:01
[2019-11-20 15:40] VITALS: BP 101/84
--- NOTE | 2019-11-20 16:38 | General Progress Note ---
Assessment/Plan Assessment/Plan: (1) Chest pain (2) R/O ACS Patient will continue Tylenol We will discontinue Flexeril. D/w Dr. White and he concurred. Subjective Date patient seen: Nov 20, 2019 Time patient seen: 04:00 - pm Constitutional: Reports: no symptoms HEENT: Reports: no symptoms Cardiovascular: Reports: no symptoms Respiratory: Reports: no symptoms Gastrointestinal/Abdominal: Reports: no symptoms Genitourinary: Reports: no symptoms Neurologic/Psychiatric: Reports: no symptoms Endocrine: Reports: no symptoms Hematologic/Lymphatic: Reports: no symptoms Allergies: Uncoded Allergies: STEROID (Allergy, Unknown, 11/16/19) Subjective Patient is in bed and reports dizziness and tiredness after taking the flexeril he no longer would like to take it. He is in no pain at this time. Objective Last 24 Hour Vital Signs Date Time Temp Pulse Resp B/P (MAP) Pulse Ox O2 Delivery O2 Flow Rate FiO2 11/20/19 15:40 98.4 76 16 101/84 (90) 97 11/20/19 13:13 66 11/20/19 11:47 98.2 96 21 122/66 (84) 96 11/20/19 09:58 Nasal Cannula 1.0 11/20/19 09:12 60 11/20/19 08:00 98.3 75 21 110/71 (84) 97 11/20/19 04:00 97.5 64 20 146/79 (101) 97 11/20/19 04:00 69 11/20/19 00:00 96.6 63 130/74 (92) 11/20/19 00:00 75 11/19/19 21:00 Nasal Cannula 1.0 11/19/19 21:00 99 11/19/19 20:00 95.7 76 20 138/86 (103) 97 Intake and Output 11/19/19 11/20/19 19:00 07:00 Intake Total 820 ml Balance 820 ml Intake Oral 820 ml # Voids 3 2 # Bowel Movements 2 Height (Feet): 6 Height (Inches): 1.00 Weight (Pounds): 205 General Appearance: alert EENT: PERRL/EOMI, normal ENT inspection Neck: non-tender, normal alignment Cardiovascular: normal rate, regular rhythm Respiratory/Chest: lungs clear, normal breath sounds Abdomen: non tender, soft Extremities: non-tender Neurologic: alert, oriented x 3 Skin: normal pigmentation Hari Gaona Nov 20, 2019 16:38
--- NOTE | 2019-11-20 16:40 | NUR ---
NURSE NOTES: Patient was c/o fatigue. checked his v/s and its stable. Dr. Gaona present and d/c the flexeril, stated that that might have been the cause of him feeling tiredness. patient instructed patient to calm. patient is having dinner as of now. will cont to monitor.
--- NOTE | 2019-11-20 19:09 | NUR ---
HAND-OFF: Report given to Martha.
--- NOTE | 2019-11-20 19:35 | NUR ---
NURSE NOTES: Received report from Vee Johnston RN. Pt is in stable condition, AXO x 4. Bed in lowest position, call light within reach, pt denies pain and is in stable condition. Will continue to monitor closely.
[2019-11-20 20:00] VITALS: BP 124/67
--- NOTE | 2019-11-20 23:00 | Progress Note ---
DATE: 11/20/2019 SUBJECTIVE: The patient denies shortness of breath. Chest pain is improving. Denies nausea, vomiting. ASSESSMENT AND PLAN: The patient is being ruled out for acute coronary syndrome. The patient has atypical chest pain. The patient was ruled out for myocardial infarction. Dr. Black is also seeing the patient for anxiety and PTSD. The pain specialist seeing the patient for pain control as well. The patient is ruled out and will be doing discharge planning, most likely discharged tomorrow. Abran Snow M.D. DR: Bijan JOB#: [id number] CC:
--- NOTE | 2019-11-20 23:45 | NUR ---
NURSE NOTES: Received report from GRACIELA Meadows. Patient transferred from Tele. ANO x4. On room air with no signs of distress or SOB. No c/o pain at this time. Skin intact. Ambulatory. 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 Bed locked and in lowest position. Call light in reach. Will continue to monitor the patient.
[2019-11-21] VITALS: BP 151/85
[2019-11-21 03:53] VITALS: BP 125/75
[2019-11-21] MEDS ORDERED: LORazepam 0.5mg tab ORAL PRN (05:00)
--- NOTE | 2019-11-21 06:29 | Progress Note ---
DATE: 11/20/2019 SUBJECTIVE: The patient is the same. Has anxiety circumstantial lot of his anxiety and past trauma. MENTAL STATUS EXAMINATION: The patient is alert and oriented times self, place, and situation. Mood is anxious. Affect is constricted. Thought process is circumstantial. Thought content, no suicidal or homicidal ideation. ASSESSMENT: Stable. PLAN: 1. We will continue current medications. 2. Provide the patient with reality orientation and supportive therapy. Mendez Black M.D. DR: JOSE ANGEL JOB#: [id number] CC:
[2019-11-21] MEDS ORDERED: traMADol 50mg tab ORAL PRN (06:45)
--- NOTE | 2019-11-21 07:35 | NUR ---
NURSE NOTES: Received patient on bed, awake. IV site intact and patent. Bed in low and locked position, call light in reach. No signs of respiratory distress or pain. Room board updated, will continue to monitor.
--- NOTE | 2019-11-21 07:48 | NUR ---
HAND-OFF: Report given to GRACIELA Jones.
[2019-11-21 08:00] VITALS: BP 117/76
[2019-11-21] MEDS: LaMICtal 150mg tab ORAL SCH (08:14)
--- NOTE | 2019-11-21 08:33 | General Progress Note ---
Assessment/Plan Problem List: (1) Chest pain ICD Codes: R07.9 - Chest pain, unspecified SNOMED: 24565115 Qualifiers: Qualified Codes: R07.9 - Chest pain, unspecified (2) PTSD (post-traumatic stress disorder) ICD Codes: F43.10 - Post-traumatic stress disorder, unspecified SNOMED: 56714257 (3) Acute coronary syndrome ICD Codes: I24.9 - Acute ischemic heart disease, unspecified SNOMED: 608851422 (4) Near syncope ICD Codes: R55 - Syncope and collapse SNOMED: 073078259 Status: progressing Assessment/Plan: neg stress test will dc home today atypical cp anxiety Subjective Allergies: Uncoded Allergies: STEROID (Allergy, Unknown, 11/16/19) Objective Last 24 Hour Vital Signs Date Time Temp Pulse Resp B/P (MAP) Pulse Ox O2 Delivery O2 Flow Rate FiO2 11/21/19 03:53 97.5 59 18 125/75 (92) 98 11/21/19 00:00 97.2 75 22 151/85 (107) 96 11/20/19 21:00 Nasal Cannula 1.0 11/20/19 20:00 97.7 78 16 124/67 (86) 97 11/20/19 19:03 66 11/20/19 15:40 98.4 76 16 101/84 (90) 97 11/20/19 13:13 66 11/20/19 11:47 98.2 96 21 122/66 (84) 96 11/20/19 09:58 Nasal Cannula 1.0 11/20/19 09:12 60 Intake and Output 11/20/19 11/21/19 19:00 07:00 Intake Total 960 ml 360 ml Balance 960 ml 360 ml Intake Oral 960 ml Other 360 ml # Voids 2 Height (Feet): 6 Height (Inches): 1.00 Weight (Pounds): 205 Abran Snow MD Nov 21, 2019 08:33
[2019-11-21] MEDS ORDERED: Lexiscan 0.4mg/5ml syringe IV PRN (09:00)
--- NOTE | 2019-11-21 09:31 | NUR ---
CHARGE NURSE NOTE: Received the order to discharge pt home. Pt states that he feels dizzy, weak,numbness in the tongue, vertigo. cancelled discharge order. (neurologist) will see patient.
--- NOTE | 2019-11-21 09:35 | General Progress Note ---
Assessment/Plan Problem List: (1) Chest pain ICD Codes: R07.9 - Chest pain, unspecified SNOMED: 83084265 Qualifiers: Qualified Codes: R07.9 - Chest pain, unspecified (2) PTSD (post-traumatic stress disorder) ICD Codes: F43.10 - Post-traumatic stress disorder, unspecified SNOMED: 22873200 (3) Acute coronary syndrome ICD Codes: I24.9 - Acute ischemic heart disease, unspecified SNOMED: 944406998 (4) Near syncope ICD Codes: R55 - Syncope and collapse SNOMED: 425523539 Status: progressing Assessment/Plan: has numbness and generalized weakness and dizzy so unsafe to dc and consulted dr escalona Subjective ROS Limited/Unobtainable: Yes Allergies: Uncoded Allergies: STEROID (Allergy, Unknown, 11/16/19) Objective Last 24 Hour Vital Signs Date Time Temp Pulse Resp B/P (MAP) Pulse Ox O2 Delivery O2 Flow Rate FiO2 11/21/19 03:53 97.5 59 18 125/75 (92) 98 11/21/19 00:00 97.2 75 22 151/85 (107) 96 11/20/19 21:00 Nasal Cannula 1.0 11/20/19 20:00 97.7 78 16 124/67 (86) 97 11/20/19 19:03 66 11/20/19 15:40 98.4 76 16 101/84 (90) 97 11/20/19 13:13 66 11/20/19 11:47 98.2 96 21 122/66 (84) 96 11/20/19 09:58 Nasal Cannula 1.0 Intake and Output 11/20/19 11/21/19 19:00 07:00 Intake Total 960 ml 360 ml Balance 960 ml 360 ml Intake Oral 960 ml Other 360 ml # Voids 2 Height (Feet): 6 Height (Inches): 1.00 Weight (Pounds): 205 Abran Snow MD Nov 21, 2019 09:35
--- NOTE | 2019-11-21 10:02 | General Progress Note ---
Assessment/Plan Assessment/Plan: (1) Chest pain (2) R/O ACS Patient will continue Tylenol We will discontinue Tramadol. D/w Dr. White and he concurred. Subjective Date patient seen: Nov 21, 2019 Time patient seen: 09:30 - am Constitutional: Reports: malaise, weakness HEENT: Reports: no symptoms Cardiovascular: Reports: no symptoms Respiratory: Reports: no symptoms Gastrointestinal/Abdominal: Reports: no symptoms Genitourinary: Reports: no symptoms Neurologic/Psychiatric: Reports: headache Endocrine: Reports: no symptoms Hematologic/Lymphatic: Reports: no symptoms Allergies: Uncoded Allergies: STEROID (Allergy, Unknown, 11/16/19) Subjective Patient reports no pain at this time. However he continues to c/o slight headache, dizziness and equilibrium issues. Waiting to be seen by Neurologist. Was started on Tramadol by another healthcare practitioner however he continues to deny pain and is okay with the Tylenol. Objective Last 24 Hour Vital Signs Date Time Temp Pulse Resp B/P (MAP) Pulse Ox O2 Delivery O2 Flow Rate FiO2 11/21/19 03:53 97.5 59 18 125/75 (92) 98 11/21/19 00:00 97.2 75 22 151/85 (107) 96 11/20/19 21:00 Nasal Cannula 1.0 11/20/19 20:00 97.7 78 16 124/67 (86) 97 11/20/19 19:03 66 11/20/19 15:40 98.4 76 16 101/84 (90) 97 11/20/19 13:13 66 11/20/19 11:47 98.2 96 21 122/66 (84) 96 11/20/19 09:58 Nasal Cannula 1.0 Intake and Output 11/20/19 11/21/19 19:00 07:00 Intake Total 960 ml 360 ml Balance 960 ml 360 ml Intake Oral 960 ml Other 360 ml # Voids 2 Height (Feet): 6 Height (Inches): 1.00 Weight (Pounds): 205 General Appearance: no apparent distress, alert EENT: PERRL/EOMI, normal ENT inspection Neck: non-tender, normal alignment Cardiovascular: normal rate, regular rhythm Respiratory/Chest: lungs clear, normal breath sounds Abdomen: non tender, soft Extremities: non-tender Edema: no edema noted Generalized Neurologic: alert, oriented x 3 Skin: normal pigmentation Hari Gaona Nov 21, 2019 10:02
[2019-11-21 12:00] VITALS: BP 121/75
--- NOTE | 2019-11-21 12:18 | Hematology/Onc Progress Note ---
Assessment/Plan Assessment/Plan Assessment and Recs # Leukopenia with decreased wbc approx 3.7-->4.1-->6 --> peripheral smear has been noted, and no abnml white cells noted --> us of the abdomen--> shows fatty liver --> hep and hiv both neg --> abx as needed --> meds have been reviewed # Chest pain --> r/o acs --> trop as needed --> per cars, recs noted # Mild left lung base pleural thickening, may be chronic. --> appears chronic # Near syncope --> ivf prn basis -> echo # PTSD (post-traumatic stress disorder) --> psych has been consulted # Anxiety --> ativan prn Appreciate consultation and discussed with Rn Subjective Constitutional: Denies: no symptoms, chills, fever, malaise, weakness, other HEENT: Denies: no symptoms, eye pain, blurred vision, tearing, double vision, ear pain, ear discharge, nose pain, nose congestion, throat pain, throat swelling, mouth pain, mouth swelling, other Cardiovascular: Denies: no symptoms, chest pain, edema, irregular heart rate, lightheadedness, palpitations, syncope, other Respiratory: Denies: no symptoms, cough, shortness of breath, SOB with excertion, SOB at rest, sputum, wheezing, other Gastrointestinal/Abdominal: Denies: no symptoms, abdomen distended, abdominal pain, black stools, tarry stools, blood in stool, constipated, diarrhea, difficulty swallowing, nausea, poor appetite, poor fluid intake, rectal bleeding , vomiting, other Genitourinary: Denies: no symptoms, burning, discharge, frequency, flank pain, hematuria, incontinence, pain, urgency, other Neurologic/Psychiatric: Denies: no symptoms, anxiety, depressed, emotional problems, headache, numbness, paresthesia, pre-existing deficit, seizure, tingling, tremors, weakness, other Endocrine: Denies: no symptoms, excessive sweating, flushing, intolerance to cold, intolerance to heat, increased hunger, increased thirst, increased urine, unexplained weight gain, unexplained weight loss, other Allergies: Uncoded Allergies: STEROID (Allergy, Unknown, 11/16/19) Subjective 11/19 no events, no bleeding, no night sweats, labs noted 11/20 no major events, continuing complain of schultz, have dc tramadol and continuing tylenol, labs reviewed Objective Objective Current Medications Medications (Trade) Dose Ordered Sig/Aaron Route PRN Reason Start Time Stop Time Status Last Admin Dose Admin Acetaminophen (Tylenol) 650 mg Q4H PRN ORAL Mild Pain/Temp > 100.5 11/21/19 00:30 12/17/19 08:29 Lamotrigine (LaMICtal) 300 mg DAILY ORAL 11/21/19 09:00 01/01/20 13:59 11/21/19 08:14 Lorazepam (Ativan) 1 mg Q6H PRN ORAL For Anxiety 11/21/19 05:00 11/24/19 22:59 Last 24 Hour Vital Signs Date Time Temp Pulse Resp B/P (MAP) Pulse Ox O2 Delivery O2 Flow Rate FiO2 11/21/19 09:00 Nasal Cannula 1.0 11/21/19 03:53 97.5 59 18 125/75 (92) 98 11/21/19 00:00 97.2 75 22 151/85 (107) 96 11/20/19 21:00 Nasal Cannula 1.0 11/20/19 20:00 97.7 78 16 124/67 (86) 97 11/20/19 19:03 66 11/20/19 15:40 98.4 76 16 101/84 (90) 97 11/20/19 13:13 66 11/20/19 11:47 98.2 96 21 122/66 (84) 96 11/20/19 09:58 Nasal Cannula 1.0 11/20/19 09:12 60 11/20/19 08:00 98.3 75 21 110/71 (84) 97 11/20/19 04:00 97.5 64 20 146/79 (101) 97 11/20/19 04:00 69 11/20/19 00:00 96.6 63 130/74 (92) 11/20/19 00:00 75 11/19/19 21:00 Nasal Cannula 1.0 11/19/19 21:00 99 11/19/19 20:00 95.7 76 20 138/86 (103) 97 11/19/19 16:14 67 11/19/19 15:53 98.1 63 20 119/60 (79) 98 Intake and Output 11/20/19 11/21/19 19:00 07:00 Intake Total 960 ml 360 ml Balance 960 ml 360 ml Intake Oral 960 ml Other 360 ml # Voids 2 Labs Test 11/19/19 06:35 White Blood Count 6.5 K/UL (4.8-10.8) Red Blood Count 5.10 M/UL (4.70-6.10) Hemoglobin 16.2 G/DL (14.2-18.0) Hematocrit 45.8 % (42.0-52.0) Mean Corpuscular Volume 90 FL (80-99) Mean Corpuscular Hemoglobin 31.8 PG (27.0-31.0) Mean Corpuscular Hemoglobin Concent 35.4 G/DL (32.0-36.0) Red Cell Distribution Width 10.2 % (11.6-14.8) Platelet Count 234 K/UL (150-450) Mean Platelet Volume 6.3 FL (6.5-10.1) Neutrophils (%) (Auto) 58.6 % (45.0-75.0) Lymphocytes (%) (Auto) 29.8 % (20.0-45.0) Monocytes (%) (Auto) 9.1 % (1.0-10.0) Eosinophils (%) (Auto) 1.6 % (0.0-3.0) Basophils (%) (Auto) 0.9 % (0.0-2.0) Hepatitis A IgM Antibody Negative (Negative) Hepatitis B Surface Antigen Negative (Negative) Hepatitis B Core IgM Antibody Negative (Negative) Hepatitis C Antibody 0.2 s/co ratio (0.0-0.9) HIV (1&2) Antibody Rapid Negative (NEGATIVE) Height (Feet): 6 Height (Inches): 1.00 Weight (Pounds): 205 Objective Physical Exam Vitals: reviewed, normal General: well appearing, no apparent distress, GCS 15 Heent: normocephalic, atraumatic Neck: supple Respiratory: chest non-tender, lungs clear, normal breath sounds Cardiovascular: regular rate, rhythm, no edema Gi: normal inspection, normal bowel sounds, non tender Msk: back normal, normal range of motion Neuro: alert, oriented x3, grossly normal Claudio Gibbs MD Nov 21, 2019 12:18
--- NOTE | 2019-11-21 12:22 | Cardiac Electrophysiology PN ---
Assessment/Plan Assessment/Plan 1. Atyical Chest pain. EKG is completely normal. The patient already was ruled out completely for myocardial infarction. Echocardiogram NL EF and stress test showed no ischemia 2. Bipolar disorder, on Lamictal 200 mg daily. 3. Shortness of breath. Echocardiogram Nl EF and BNP is only 15. DC today Subjective Subjective No CP or SOB. Stress test was nonischemic. DC in progress Objective Last 24 Hour Vital Signs Date Time Temp Pulse Resp B/P (MAP) Pulse Ox O2 Delivery O2 Flow Rate FiO2 11/21/19 09:00 Nasal Cannula 1.0 11/21/19 03:53 97.5 59 18 125/75 (92) 98 11/21/19 00:00 97.2 75 22 151/85 (107) 96 11/20/19 21:00 Nasal Cannula 1.0 11/20/19 20:00 97.7 78 16 124/67 (86) 97 11/20/19 19:03 66 11/20/19 15:40 98.4 76 16 101/84 (90) 97 11/20/19 13:13 66 Intake and Output 11/20/19 11/21/19 19:00 07:00 Intake Total 960 ml 360 ml Balance 960 ml 360 ml Intake Oral 960 ml Other 360 ml # Voids 2 Objective HEAD AND NECK: No JVD. LUNGS: Clear. CARDIOVASCULAR: Regular S1 and S2 with no gallop or murmur. ABDOMEN: Soft. EXTREMITIES: No pitting edema. Luis Rucker MD Nov 21, 2019 12:22
--- NOTE | 2019-11-21 15:03 | NUR ---
RADIOLOGY DEPT., CHEST X-RAY DONE.-P.DYE
--- NOTE | 2019-11-21 15:54 | Diagnostic Imaging Report ---
Indication: Dyspnea Comparison: 11/16/2019 A single view chest radiograph was obtained. Findings: Cardiomediastinal appearance is within normal limits for age. The lungs are clear. Pulmonary vascularity is appropriate. The diaphragmatic contour is smooth and costophrenic angles are sharp. No pleural effusions are identified. The bones are osteopenic. Multilevel vertebral endplate enthesophytes noted. Impression: No acute findings
[2019-11-21 16:00] VITALS: BP 121/77
[2019-11-21] MEDS ORDERED: Gadavist 7.5mMol/7.5ml vial IV PRN (18:15)
--- NOTE | 2019-11-21 19:26 | NUR ---
NURSE NOTES: Patient awake in bed, alert and oriented x4, on nasal cannula @ 2LPM. No complaints of pain at this time. Instructed to use call light for assistance. Call light in reach. Safety measures applied. Will continue plan of care.
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
[2019-11-21 20:00] VITALS: BP 117/71
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
[2019-11-22] VITALS: BP 100/59
[2019-11-22 04:00] VITALS: BP 116/74
--- NOTE | 2019-11-22 06:46 | Hematology/Onc Progress Note ---
Assessment/Plan Assessment/Plan Assessment and Recs # Leukopenia with decreased wbc approx 3.7-->4.1-->6 --> peripheral smear has been noted, and no abnml white cells noted --> us of the abdomen--> shows fatty liver --> hep and hiv both neg --> abx as needed --> meds have been reviewed # Chest pain --> r/o acs --> trop as needed --> per cars, recs noted # Mild left lung base pleural thickening, may be chronic. --> appears chronic # Near syncope --> ivf prn basis -> echo # PTSD (post-traumatic stress disorder) --> psych has been consulted # Anxiety --> ativan prn Appreciate consultation and discussed with Rn Subjective Constitutional: Denies: no symptoms, chills, fever, malaise, weakness, other HEENT: Denies: no symptoms, eye pain, blurred vision, tearing, double vision, ear pain, ear discharge, nose pain, nose congestion, throat pain, throat swelling, mouth pain, mouth swelling, other Cardiovascular: Denies: no symptoms, chest pain, edema, irregular heart rate, lightheadedness, palpitations, syncope, other Respiratory: Denies: no symptoms, cough, shortness of breath, SOB with excertion, SOB at rest, sputum, wheezing, other Gastrointestinal/Abdominal: Denies: no symptoms, abdomen distended, abdominal pain, black stools, tarry stools, blood in stool, constipated, diarrhea, difficulty swallowing, nausea, poor appetite, poor fluid intake, rectal bleeding , vomiting, other Genitourinary: Denies: no symptoms, burning, discharge, frequency, flank pain, hematuria, incontinence, pain, urgency, other Neurologic/Psychiatric: Denies: no symptoms, anxiety, depressed, emotional problems, headache, numbness, paresthesia, pre-existing deficit, seizure, tingling, tremors, weakness, other Endocrine: Denies: no symptoms, excessive sweating, flushing, intolerance to cold, intolerance to heat, increased hunger, increased thirst, increased urine, unexplained weight gain, unexplained weight loss, other Allergies: Uncoded Allergies: STEROID (Allergy, Unknown, 11/16/19) Subjective 11/19 no events, no bleeding, no night sweats, labs noted 11/20 no major events, continuing complain of schultz, have dc tramadol and continuing tylenol, labs reviewed 11/21 awake, alert, no major changes, dw rn, poor memory Objective Objective Current Medications Medications (Trade) Dose Ordered Sig/Aaron Route PRN Reason Start Time Stop Time Status Last Admin Dose Admin Acetaminophen (Tylenol) 650 mg Q4H PRN ORAL Mild Pain/Temp > 100.5 11/21/19 00:30 12/17/19 08:29 Gadobutrol (Gadavist) 7.5 mmol NOW PRN IV Radiology Procedure 11/21/19 18:15 11/25/19 18:15 Lamotrigine (LaMICtal) 300 mg DAILY ORAL 11/21/19 09:00 01/01/20 13:59 11/21/19 08:14 Lorazepam (Ativan) 1 mg Q6H PRN ORAL For Anxiety 11/21/19 05:00 11/24/19 22:59 Last 24 Hour Vital Signs Date Time Temp Pulse Resp B/P (MAP) Pulse Ox O2 Delivery O2 Flow Rate FiO2 11/22/19 04:00 97.9 65 18 116/74 (88) 98 11/22/19 00:00 98.3 69 18 100/59 (73) 96 11/21/19 20:46 Nasal Cannula 1.0 11/21/19 20:44 70 75 95 11/21/19 20:00 98.4 77 18 117/71 (86) 95 11/21/19 16:00 98.0 76 20 121/77 (92) 95 11/21/19 12:00 98.3 80 19 121/75 (90) 100 11/21/19 09:00 Nasal Cannula 1.0 11/21/19 08:00 97.7 76 20 117/76 (90) 96 11/21/19 03:53 97.5 59 18 125/75 (92) 98 11/21/19 00:00 97.2 75 22 151/85 (107) 96 11/20/19 21:00 Nasal Cannula 1.0 11/20/19 20:00 97.7 78 16 124/67 (86) 97 11/20/19 19:03 66 11/20/19 15:40 98.4 76 16 101/84 (90) 97 11/20/19 13:13 66 11/20/19 11:47 98.2 96 21 122/66 (84) 96 11/20/19 09:58 Nasal Cannula 1.0 11/20/19 09:12 60 11/20/19 08:00 98.3 75 21 110/71 (84) 97 Intake and Output 11/21/19 11/22/19 19:02 07:02 Intake Total 720 ml Balance 720 ml Intake Oral 720 ml # Voids 1 Height (Feet): 6 Height (Inches): 1.00 Weight (Pounds): 205 Objective Physical Exam Vitals: reviewed, normal General: well appearing, no apparent distress, GCS 15 Heent: normocephalic, atraumatic Neck: supple Respiratory: chest non-tender, lungs clear, normal breath sounds Cardiovascular: regular rate, rhythm, no edema Gi: normal inspection, normal bowel sounds, non tender Msk: back normal, normal range of motion Neuro: alert, oriented x3, grossly normal Claudio Gibbs MD Nov 22, 2019 06:46
--- NOTE | 2019-11-22 07:25 | NUR ---
NURSE NOTES: Patient awake, alert and oriented x4 in bed, on nasal cannula @ 2L NC. ambulates. No complaints of pain at this time. bed is in the lowest position. siderails are upx2. Instructed to use call light for assistance. Safety measures implemented, brakes and lock engaged. Will continue plan of care.
--- NOTE | 2019-11-22 07:37 | NUR ---
HAND-OFF: Report given to Vee.
[2019-11-22 08:00] VITALS: BP 137/79
[2019-11-22] MEDS: LaMICtal 150mg tab ORAL SCH (08:45)
--- NOTE | 2019-11-22 09:00 | NUR ---
PT NOTES M.D. order received and PT eval completed. Patient is safe and independent with bed mobility, transfers and gait without assistive device with no evidence of LOB. Patient does not require skilled PT at this time. Patient reports up and about independently in his room. No PT indicated, discharge PT services. Thank you for this referral.
--- NOTE | 2019-11-22 10:17 | General Progress Note ---
Assessment/Plan Assessment/Plan: (1) Chest pain (2) R/O ACS Patient will continue Tylenol D/w Dr. White and he concurred. Subjective Date patient seen: Nov 22, 2019 Time patient seen: 09:30 - am Constitutional: Reports: no symptoms HEENT: Reports: no symptoms Cardiovascular: Reports: no symptoms Respiratory: Reports: no symptoms Gastrointestinal/Abdominal: Reports: no symptoms Genitourinary: Reports: no symptoms Neurologic/Psychiatric: Reports: no symptoms Endocrine: Reports: no symptoms Hematologic/Lymphatic: Reports: no symptoms Allergies: Uncoded Allergies: STEROID (Allergy, Unknown, 11/16/19) Subjective Patient is in bed and reports no pain at this time. Was seen by Neuro and MRI of brain was ordered Objective Last 24 Hour Vital Signs Date Time Temp Pulse Resp B/P (MAP) Pulse Ox O2 Delivery O2 Flow Rate FiO2 11/22/19 09:00 Nasal Cannula 1.0 11/22/19 08:00 97.9 81 18 137/79 (98) 97 11/22/19 04:00 97.9 65 18 116/74 (88) 98 11/22/19 00:00 98.3 69 18 100/59 (73) 96 11/21/19 20:46 Nasal Cannula 1.0 11/21/19 20:44 70 75 95 11/21/19 20:00 98.4 77 18 117/71 (86) 95 11/21/19 16:00 98.0 76 20 121/77 (92) 95 11/21/19 12:00 98.3 80 19 121/75 (90) 100 Intake and Output 11/21/19 11/22/19 19:00 07:00 Intake Total 720 ml Balance 720 ml Intake Oral 720 ml # Voids 1 Height (Feet): 6 Height (Inches): 1.00 Weight (Pounds): 205 General Appearance: no apparent distress, alert EENT: PERRL/EOMI, normal ENT inspection Neck: normal alignment, supple Cardiovascular: normal rate, regular rhythm Respiratory/Chest: lungs clear, normal breath sounds Abdomen: non tender, soft Extremities: non-tender Edema: no edema noted Generalized Neurologic: alert, oriented x 3 Skin: normal pigmentation Hari Gaona Nov 22, 2019 10:17
[2019-11-22 12:00] VITALS: BP 133/78
--- NOTE | 2019-11-22 12:23 | Infectious Diseases Prog Note ---
Assessment/Plan Assessment/Plan IMPRESSION: Leukopenia, resolved; Fatigue. atypical chest pain, nicotine dependence, bipolar disorder, fatty liver. History of rectal cancer. RECOMMENDATION: Observe off antibiotic CXR: negative Subjective ROS Limited/Unobtainable: Yes Constitutional: Reports: no symptoms, other - feels better Respiratory: Reports: no symptoms Gastrointestinal/Abdominal: Reports: no symptoms Genitourinary: Reports: no symptoms Allergies: Uncoded Allergies: STEROID (Allergy, Unknown, 11/16/19) Objective Vital Signs Last 24 Hour Vital Signs Date Time Temp Pulse Resp B/P (MAP) Pulse Ox O2 Delivery O2 Flow Rate FiO2 11/22/19 12:00 98.4 79 18 133/78 (96) 99 11/22/19 09:00 Nasal Cannula 1.0 11/22/19 08:00 97.9 81 18 137/79 (98) 97 11/22/19 04:00 97.9 65 18 116/74 (88) 98 11/22/19 00:00 98.3 69 18 100/59 (73) 96 11/21/19 20:46 Nasal Cannula 1.0 11/21/19 20:44 70 75 95 11/21/19 20:00 98.4 77 18 117/71 (86) 95 11/21/19 16:00 98.0 76 20 121/77 (92) 95 Height (Feet): 6 Height (Inches): 1.00 Weight (Pounds): 205 General Appearance: no acute distress HEENT: mucous membranes moist Respiratory/Chest: lungs clear Cardiovascular: normal rate Abdomen: soft, non tender Extremities: no edema Neurologic/Psychiatric: alert, oriented x 3, responsive Current Medications Medications (Trade) Dose Ordered Sig/Aaron Route PRN Reason Start Time Stop Time Status Last Admin Dose Admin Acetaminophen (Tylenol) 650 mg Q4H PRN ORAL Mild Pain/Temp > 100.5 11/21/19 00:30 12/17/19 08:29 Gadobutrol (Gadavist) 7.5 mmol NOW PRN IV Radiology Procedure 11/21/19 18:15 11/25/19 18:15 Lamotrigine (LaMICtal) 300 mg DAILY ORAL 11/21/19 09:00 01/01/20 13:59 11/22/19 08:45 Lorazepam (Ativan) 1 mg Q6H PRN ORAL For Anxiety 11/21/19 05:00 11/24/19 22:59 Calvin Shen MD Nov 22, 2019 12:23
--- NOTE | 2019-11-22 13:15 | Psych Consult Progress Note ---
Psychiatry Progress Note Psychiatry Progress Note Subjective this is the late entry due to system being down last night 11/21/2019 Medications Current Medications Medications (Trade) Dose Ordered Sig/Aaron Route PRN Reason Start Time Stop Time Status Last Admin Dose Admin Acetaminophen (Tylenol) 650 mg Q4H PRN ORAL Mild Pain/Temp > 100.5 11/21/19 00:30 12/17/19 08:29 Gadobutrol (Gadavist) 7.5 mmol NOW PRN IV Radiology Procedure 11/21/19 18:15 11/25/19 18:15 Lamotrigine (LaMICtal) 300 mg DAILY ORAL 11/21/19 09:00 01/01/20 13:59 11/22/19 08:45 Lorazepam (Ativan) 1 mg Q6H PRN ORAL For Anxiety 11/21/19 05:00 11/24/19 22:59 Neurological/Psychiatric: Reports: anxiety, depressed, emotional problems Allergies: Uncoded Allergies: STEROID (Allergy, Unknown, 11/16/19) Objective Data Height (Feet): 6 Height (Inches): 1.00 Weight (Pounds): 205 General Appearance: WD/WN, alert, alert oriented x3 Appearance: disheveled Behavior Mannerisms: good eye contact Mental Status Exam - Mood: depressed, irritable, anxious Speech: clear Additional Comments: anxiety and past trauma. MENTAL STATUS EXAMINATION: The patient is alert and oriented times self, place, and situation. Mood is anxious. Affect is constricted. Thought process is circumstantial. Thought content, no suicidal or homicidal ideation. ASSESSMENT: Stable. PLAN: 1. We will continue current medications. 2. Provide the patient with reality orientation and supportive Mendez Black MD Nov 22, 2019 13:15
--- NOTE | 2019-11-22 15:12 | NUR ---
HAND-OFF: Report given to Frederick. patient off unit for MRI.
--- NOTE | 2019-11-22 15:40 | Cardiac Electrophysiology PN ---
Assessment/Plan Assessment/Plan 1. Atyical Chest pain. EKG is completely normal. Already ruled out for myocardial infarction. Echocardiogram NL EF and stress test showed no ischemia 2. Bipolar disorder, on Lamictal 200 mg daily. 3. Shortness of breath. Echocardiogram Nl EF and BNP is only 15. DC planning after MRI Subjective Subjective No CP or SOB. Stress test was nonischemic. Getting MRI brain Objective Last 24 Hour Vital Signs Date Time Temp Pulse Resp B/P (MAP) Pulse Ox O2 Delivery O2 Flow Rate FiO2 11/22/19 12:00 98.4 79 18 133/78 (96) 99 11/22/19 09:00 Nasal Cannula 1.0 11/22/19 08:00 97.9 81 18 137/79 (98) 97 11/22/19 08:00 76 87 100 11/22/19 04:00 97.9 65 18 116/74 (88) 98 11/22/19 00:00 98.3 69 18 100/59 (73) 96 11/21/19 20:46 Nasal Cannula 1.0 11/21/19 20:44 70 75 95 11/21/19 20:00 98.4 77 18 117/71 (86) 95 11/21/19 16:00 98.0 76 20 121/77 (92) 95 Intake and Output 11/21/19 11/22/19 19:00 07:00 Intake Total 720 ml Balance 720 ml Intake Oral 720 ml # Voids 1 Objective HEAD AND NECK: No JVD. LUNGS: Clear. CARDIOVASCULAR: Regular S1 and S2 with no gallop or murmur. ABDOMEN: Soft. EXTREMITIES: No pitting edema. Luis Rucker MD Nov 22, 2019 15:40
[2019-11-22 16:00] VITALS: BP 140/92
--- NOTE | 2019-11-22 16:00 | NUR ---
NURSE NOTES: MRI done and returned to his room. No s/sx of acute resp distress noted. will cont to monitor.
--- NOTE | 2019-11-22 16:09 | Diagnostic Imaging Report ---
Indication: Altered mental status Technique: MRI the brain performed utilizing T1 sagittal, T2 axial, T1 FLAIR axial, T2 FLAIR axial, T2*GRE and diffusion axial images without gadolinium. Comparison: None Findings: No diffusion abnormalities are seen on diffusion weighted imaging. There is no focal signal dropout on GRE/T2*to suggest acute intracranial hemorrhage. The sulci, ventricles and cisterns are within normal limits for age. Minimal periventricular T2 hyperintensity is seen without mass effect most likely related to chronic ischemic microvascular change. There is no shift of midline structures. No significant extra-axial collections of fluid or blood are demonstrated. Expected signal flow voids are seen of the vessels of the skull base. Visualized mastoid air cells and paranasal sinuses are unremarkable. No focal bony calvarium or soft tissue lesions are seen. IMPRESSION: No acute intracranial abnormality identified. Specifically no evidence of acute infarct, acute intracranial hemorrhage, mass effect or midline shift.
--- NOTE | 2019-11-22 17:22 | NUR ---
*-*DISCHARGE PLANNING*-* [facility] HAS BEEN ACCEPTED TO: [facility] P: [phone] PER NUE TO NURSE REPORT ROOM# 1.B PATIENT IS TO BE DISCHARGED OVER THE WEEKEND, NURSE WILL ACTIVATE TRANSPORTATION. [facility] SET FOR WILL CALL [phone] SPOKE WITH CAROLYN PER FLOW MANAGER FELI BASILIO, NO DISCHARGE ORDER YET------ Addendum: 11/22/19 at 1731 by GERDA HOOD CM RN TO FOLLOW UP IN REGARDS TO DISCHARGE ORDER.
--- NOTE | 2019-11-22 19:08 | NUR ---
HAND-OFF: Report given to Raquel.
[2019-11-22 20:00] VITALS: BP 134/79
--- NOTE | 2019-11-22 20:00 | NUR ---
NURSE NOTES:RECEIVED PATIENT LYING IN BED, AWAKE, ALERT/ORIENTED X4, VERBALLY RESPONSIVE, DENIES PAIN. IV INTACT TO LEFT AC/GAUGE 20, NO REDNESS/SWELLING NOTED. NO SIGNS AND SYMPTOMS OF ACUTE CARDIO RESPIRATORY DISTRESS/SHORTNESS OF BREATH, DENIES CHEST PAIN, NO PERIPHERAL EDEMA NOTED. ABDOMEN SOFT/NON DISTENDED/NON TENDER, AUDIBLE BOWEL SOUNDS, NO N/V/D. SIDE RAILS UP X2 FOR MOBILITY, BED IN LOWEST POSITION FOR SAFETY, ENCOURAGED PATIENT TO UTILIZE CALL LIGHT FOR ASSISTANCE, VERBALIZED UNDERSTANDING. CONTINUE WITH CURRENT PLAN OF CARE. NAD. DISCHARGE PLANNING ONGOING.
--- NOTE | 2019-11-22 21:50 | General Progress Note ---
Assessment/Plan Problem List: (1) Chest pain ICD Codes: R07.9 - Chest pain, unspecified SNOMED: 82196905 Qualifiers: Qualified Codes: R07.9 - Chest pain, unspecified (2) PTSD (post-traumatic stress disorder) ICD Codes: F43.10 - Post-traumatic stress disorder, unspecified SNOMED: 19471581 (3) Acute coronary syndrome ICD Codes: I24.9 - Acute ischemic heart disease, unspecified SNOMED: 882594510 (4) Near syncope ICD Codes: R55 - Syncope and collapse SNOMED: 881817416 Status: progressing Assessment/Plan: has numbness and generalized weakness and dizzy so unsafe to dc dr escalona and dr deisy norwood cleared him for dc however wants to be dc in am refused snf for pt and wants to go home in am Subjective ROS Limited/Unobtainable: Yes Allergies: Uncoded Allergies: STEROID (Allergy, Unknown, 11/16/19) Objective Last 24 Hour Vital Signs Date Time Temp Pulse Resp B/P (MAP) Pulse Ox O2 Delivery O2 Flow Rate FiO2 11/22/19 16:00 98.7 81 18 140/92 (108) 96 11/22/19 12:00 98.4 79 18 133/78 (96) 99 11/22/19 09:00 Nasal Cannula 1.0 11/22/19 08:00 97.9 81 18 137/79 (98) 97 11/22/19 08:00 76 87 100 11/22/19 04:00 97.9 65 18 116/74 (88) 98 11/22/19 00:00 98.3 69 18 100/59 (73) 96 Intake and Output 11/21/19 11/22/19 19:00 07:00 Intake Total 720 ml Balance 720 ml Intake Oral 720 ml # Voids 1 Height (Feet): 6 Height (Inches): 1.00 Weight (Pounds): 205 Cardiovascular: regular rhythm Respiratory/Chest: lungs clear Abdomen: soft Abran Snow MD Nov 22, 2019 21:50
--- NOTE | 2019-11-22 22:37 | NUR ---
NURSE NOTES: RESTING WELL ON ROUNDS. NAD.
--- NOTE | 2019-11-22 23:09 | Psych Consult Progress Note ---
Psychiatry Progress Note Psychiatry Progress Note Subjective the pt is awaiting neuro consult and placement the pt is circumstantial and is anxious Medications Current Medications Medications (Trade) Dose Ordered Sig/Aaron Route PRN Reason Start Time Stop Time Status Last Admin Dose Admin Acetaminophen (Tylenol) 650 mg Q4H PRN ORAL Mild Pain/Temp > 100.5 11/21/19 00:30 12/17/19 08:29 11/22/19 21:18 Gadobutrol (Gadavist) 7.5 mmol NOW PRN IV Radiology Procedure 11/21/19 18:15 11/25/19 18:15 Lamotrigine (LaMICtal) 300 mg DAILY ORAL 11/21/19 09:00 01/01/20 13:59 11/22/19 08:45 Lorazepam (Ativan) 1 mg Q6H PRN ORAL For Anxiety 11/21/19 05:00 11/24/19 22:59 Neurological/Psychiatric: Reports: anxiety, depressed, emotional problems Allergies: Uncoded Allergies: STEROID (Allergy, Unknown, 11/16/19) Objective Data Height (Feet): 6 Height (Inches): 1.00 Weight (Pounds): 205 General Appearance: WD/WN, no apparent distress, alert, alert oriented x3 Appearance: no abnormalities noted Behavior Mannerisms: good eye contact Mental Status Exam - Affect: blunted Mental Status Exam - Mood: depressed, anxious Speech: clear Mental Status Exam - Thought P: logical, goal-directed Mental Status Exam - Suicidal: not present Assessment/Plan [place] I: PTSD MDD lamictal 300mg po daily provided ro/st Status: progressing Mendez Black MD Nov 22, 2019 23:09
[2019-11-23] VITALS: BP 117/75
[2019-11-23 04:00] VITALS: BP 120/72
--- NOTE | 2019-11-23 05:51 | NUR ---
NURSE NOTES: RESTED WELL, NO SIGNIFICANT CHANGE OF CONDITION NOTED THROUGHOUT THE NIGHT. . SAFETY MAINTAINED. NAD.
--- NOTE | 2019-11-23 07:16 | NUR ---
HAND-OFF: Report given to KARLOS JOHNSON.
--- NOTE | 2019-11-23 07:25 | NUR ---
NURSE NOTES: Patient awake, alert and oriented x4 in bed, on RA. ambulates with steady gait. No complaints of pain at this time. bed is in the lowest position. siderails are upx2. Instructed to use call light for assistance. Safety measures implemented, brakes and lock engaged. Will continue plan of care.
[2019-11-23 08:00] VITALS: BP 115/73
[2019-11-23] MEDS: LaMICtal 150mg tab ORAL SCH (08:26)
--- NOTE | 2019-11-23 09:44 | NUR ---
NURSE NOTES: PT REFUSED VACCINE STATING HES CAUGHT UP W VACCINE
--- NOTE | 2019-11-23 09:50 | NUR ---
NURSE NOTES: PER MD DR QUILES OK FOR PT TO DC AND CM CAN SET UP HH AFTER DC
--- NOTE | 2019-11-23 10:34 | NUR ---
NURSE NOTES: verified home address. personal belongings noted. removed IV access. had BM today. appetite is adequate. HH will be arranged after d/c per CM accdg to Lisa ALONSO. VSS. In stable condition. provided taxi voucher to go home. will cont to monitor.
--- NOTE | 2019-11-23 11:10 | NUR ---
NURSE NOTES: VERIFIED W [facility] SPOKE W CYN FRANCIS REFERRAL INQUIRY SENT FAX [phone]
--- NOTE | 2019-11-23 11:33 | NUR ---
NURSE NOTES: discharge with instructions given. in stable condition. No acute resp distress noted. removed IV heplock. informed regarding home health.
--- NOTE | 2019-11-24 04:45 | Progress Note ---
DATE: 11/23/2019 SUBJECTIVE: The patient is doing fine. The patient has no behavior issues. Depressed mood, anhedonia, worthlessness, hopelessness, decreased energy. MENTAL STATUS EXAMINATION: The patient is alert and oriented times self, place, and situation. Mood is neutral. Affect is flat. Thought process is concrete. Thought content, no suicidal or homicidal ideation. ASSESSMENT: 1. PTSD. 2. Major depressive disorder. PLAN: 1. We will continue current medications. 2. Provide the patient with reality orientation and supportive therapy. Mendez Black M.D. DR: Bonita JOB#: [id number] CC:
--- NOTE | 2019-11-25 10:25 | Discharge Summary ---
Discharge Summary Discharge Summary _ DATE OF ADMISSION: 11/17/2019 DATE OF DISCHARGE: 11/23/2019 DISCHARGED BY: Dr. Snow REASON FOR ADMISSION: 59 years old male with past medical history of COPD, PTSD, anxiety, presented by paramedics with chest pain and dyspnea . Patient felt that he was about to pass out with minimal ambulation. Patient denied febrile illness. Patient denied productive cough. Presumptive risk for COVID 19 was low. Upon evaluation patient was with low tachycardia heart rate 108 , otherwise pulse oximetry was stable on room air. patient had no fever. Laboratory work-up revealed leukopenia with WBC 3.7, stable hemoglobin , hematocrit and platelet count. Stable electrolytes. Glucose 146. Troponin 0.011. pro BNP 15. Urinalysis revealed no evidence of urinary tract infection. EKG revealed sinus rhythm, no acute ischemic changes. Chest x-ray revealed no acute cardiopulmonary pathology.\ Patient subsequently admitted to telemetry floor for further management. CONSULTANTS: candy forming machine operator Dr. Loomis neurologist Dr. Marion ID specialist Dr. Calvin Shen pain specialist Dr. White intake clerk/oncologist Dr. Gibbs psychiatrist [facility] COURSE: Patient admitted to telemetry floor. Echocardiogram revealed preserved ejection fraction of 65% . No evidence of left ventricular hypertrophy. No evidence of wall motion abnormality. Right ventricular systolic pressure 21. Serial troponin were negative. EKG revealed sinus rhythm, no acute ischemic changes. Patient was ruled out for acute myocardial infarction. Nuclear stress test was nonischemic: no fixed or reversible perfusion defects were appreciated. Per candy forming machine operator chest pain was atypical. Orthostatic vital signs revealed no evidence of orthostatic changes. Telemetry shows sinus rhythm no acute ischemic changes. No evidence of arrhythmia. MRI of the brain revealed no acute intracranial abnormality. Per neurologist patient most likely had vasodepressive syncopal episode. Patient was recommended to have a Zio patch as outpatient by candy forming machine operator Patient initially presented with leukopenia . Patient was concerned about COVID 19 , however as per ID specialist ,patient did not have enough criteria for testing. Hepatitis panel and HIV test were both negative. Abdominal ultrasound demonstrated fatty liver. LFT remained stable. Hemoglobin hematocrit remained stable. Leukopenia resolved: WBC upon discharge 6.5. Per psychiatrist patient had PTSD and major depressive disorder. Current medications were continued . Patient was provided with reality orientation and supportive therapy. S Patient clinically stabilized and was ready for discharge home FINAL DIAGNOSES: Atypical chest pain Shortness of breath PTSD Anxiety Major depressive disorder Vasodepressive near syncopal episodes Nicotine dependency History of rectal cancer Fatty liver DISCHARGE MEDICATIONS: See Medication Reconciliation list. DISCHARGE INSTRUCTIONS: Patient was discharged home with home health services. Follow up with primary care provider in one week. 59 years old male I have been assigned to dictate discharge summary for this account. I was not involved in the patient's management. Sol Le NP Nov 25, 2019 10:25
== END 2019-11-23 12:16 | disposition home health service (06) | DRG 313 ==
LOC: EDBD 15:13 → EMR 15:40 → EDBEDREQ 18:57 → 2E 11-17 06:26 → 4E 11-20 23:32
DX: R07.89 Other chest pain (principal); F43.10 Post-traumatic stress disorder, unspecified; Z87.820 Personal history of traumatic brain injury; F32.9 Major depressive disorder, single episode, unspecified; K76.0 Fatty (change of) liver, not elsewhere classified; F17.210 Nicotine dependence, cigarettes, uncomplicated; J44.9 Chronic obstructive pulmonary disease, unspecified; F41.9 Anxiety disorder, unspecified; R55 Syncope and collapse; R06.02 Shortness of breath; Z85.048 Personal history of other malignant neoplasm of rectum, rectosigmoid junction, and anus; D72.819 Decreased white blood cell count, unspecified; V29.9XXS Motorcycle rider (driver) (passenger) injured in unspecified traffic accident, sequela; Z80.1 Family history of malignant neoplasm of trachea, bronchus and lung
CPT/HCPCS: 36415; 70551; 71045; 76700; 78452; 80053; 81003; 82550; 83880; 84484; 85025; 85610; 85730; 86703; 86705; 86709; 86803; 87340; 93005; 93017; 93306; 96360; 99285; J2785; J7030

== ENCOUNTER 2019-12-31 16:09 | Emergency (ER) | payer MEDICAID, MEDICARE ==
[~2019-12-31] VITALS: Ht 185.4 cm; Wt 96.6 kg
[~2019-12-31 16:09] MED LIST: LAMICTAL200 MG ORAL
[2019-12-31 16:27] VITALS: BP 136/82
[2019-12-31] MEDS ORDERED: Dicyclomine HCl 10mg/5ml oral soln ORAL ONE (16:45)
[2019-12-31] MEDS ORDERED: Lidocaine 2% Visc 15ml soln ORAL ONE (16:45)
[2019-12-31] MEDS ORDERED: Omnipaque-300 100ml vial INJ PRN (16:45)
[2019-12-31] MEDS ORDERED: Mylanta II UD 30ml ORAL ONE (16:45)
[2019-12-31 16:56] LABS: BASOPHILS % (AUTO) 0.9 % (0.0-2.0); EOSINOPHILS % (AUTO) 0.9 % (0.0-3.0); HEMATOCRIT 45.6 % (42.0-52.0); HEMOGLOBIN 14.7 G/DL (14.2-18.0); LYMPHOCYTES % (AUTO) 17.9 % (20.0-45.0); MEAN CORPUSCULAR VOLUME 94 FL (80-99); MONOCYTES % (AUTO) 8.3 % (1.0-10.0); PLATELET COUNT 243 K/UL (150-450); RED BLOOD COUNT 4.83 M/UL (4.70-6.10); RED CELL DISTRIBUTION WIDTH 11.8 % (11.6-14.8); WHITE BLOOD COUNT 4.6 K/UL (4.8-10.8)
[2019-12-31 16:59] LABS: APPEARANCE,URINE CLEAR; BILIRUBIN, URINE NEGATIVE (NEGATIVE); COLOR,URINE PALE YELLOW; GLUCOSE, URINE (UA) NEGATIVE (NEGATIVE); KETONES,URINE NEGATIVE (NEGATIVE); LEUKOCYTE ESTERASE ,URINE NEGATIVE (NEGATIVE); NITRITE,URINE NEGATIVE (NEGATIVE); PH,URINE 5 (4.5-8.0); PROTEIN,URINE NEGATIVE (NEGATIVE); UROBILINOGEN,URINE NORMAL MG/DL (0.0-1.0)
[2019-12-31 17:02] LABS: INR 0.9 (0.9-1.1)
[2019-12-31 17:08] LABS: ANION GAP 11 mmol/L (5-15); BLOOD UREA NITROGEN 10 mg/dL (7-18); CALCIUM 9.3 MG/DL (8.5-10.1); CARBON DIOXIDE 26 MMOL/L (21-32); CHLORIDE 107 MMOL/L (98-107); POTASSIUM 4.3 MMOL/L (3.5-5.1); SODIUM 144 MMOL/L (136-145)
[2019-12-31 17:13] LABS: ALANINE AMINOTRANSFERASE 50 U/L (12-78); ALBUMIN 4.3 G/DL (3.4-5.0); ALBUMIN/GLOBULIN RATIO 1.3 (1.0-2.7); ALKALINE PHOSPHATASE 59 U/L (46-116); ASPARTATE AMINO TRANSFERASE 27 U/L (15-37); BILIRUBIN,TOTAL 0.3 MG/DL (0.2-1.0)
--- NOTE | 2019-12-31 18:55 | Diagnostic Imaging Report ---
EXAM: CT Abdomen and Pelvis With Intravenous Contrast CLINICAL HISTORY: ABD PAIN TECHNIQUE: Axial computed tomography images of the abdomen and pelvis with intravenous contrast. CTDI is 9.0 mGy and DLP is 489.9 mGy-cm. One or more of the following dose reduction techniques were used: automated exposure control, adjustment of the mA and/or kV according to patient size, use of iterative reconstruction technique. COMPARISON: Ultrasound abdomen on 11/19/2019 FINDINGS: Lung bases: Punctate calcified granulomas in the right lower lung. ABDOMEN: Liver: Hepatic steatosis. Gallbladder and bile ducts: Unremarkable. No calcified stones. No ductal dilation. Pancreas: Unremarkable. No mass. No ductal dilation. Spleen: Unremarkable. No splenomegaly. Adrenals: Unremarkable. No mass. Kidneys and ureters: Small right renal cyst. No hydronephrosis or obstructing stone. Stomach and bowel: Decompressed descending colon and sigmoid colon. No bowel obstruction. No mucosal thickening. PELVIS: Appendix: Normal appendix. Bladder: Bladder wall thickening may be secondary at least in part to underdistention. Please correlate with urinalysis if concerned for cystitis. Reproductive: Unremarkable as visualized. ABDOMEN and PELVIS: Intraperitoneal space: Unremarkable. No free air. No significant fluid collection. Bones/joints: Degenerative changes of the spine. No acute fracture. No dislocation. Soft tissues: Unremarkable. Vasculature: Mild atherosclerotic changes of the vasculature. No aortic aneurysm or dissection. Lymph nodes: Unremarkable. No enlarged lymph nodes. Other findings: Lumbosacral transitional anatomy. IMPRESSION: Bladder wall thickening may be secondary at least in part to underdistention. Please correlate with urinalysis if concerned for cystitis. Hepatic steatosis.
[2019-12-31 19:15] VITALS: BP 134/78
[2019-12-31] MEDS ORDERED: NITROFURANTOIN100 M2 ORAL (19:16)
[2019-12-31] MEDS ORDERED: NORCO 5-325 TA1 EAC1 ORAL (19:16)
--- NOTE | 2019-12-31 19:21 | Emergency Room Report ---
History of Present Illness General Chief Complaint: Abdominal Pain Source: Patient Present Illness HPI Patient is a 59-year-old male presents after increased lower abdominal pain. He reports having intermittent dysuria as well as radiation of pain to his patient reports having increased urethral area discomfort intermittently. Having abnormal bowel movements. Had previous history of rectal cancer and had previous treatment. Denies any fever. Had been having lower abdominal pain primarily. Reports of increased colicky type pain to the lower abdomen. Allergies: Uncoded Allergies: STEROID (Allergy, Unknown, 11/16/19) COVID-19 Screening Contact w/high risk pt: No Recent Travel to affected area: No Experienced COVID-19 symptoms?: No Patient History Past Medical History: see triage record Reviewed Nursing Documentation: PMH: Agreed; PSxH: Agreed Nursing Documentation-PMH Hx Cardiac Problems: No Hx Hypertension: No Hx COPD: No - bronchitis Hx Diabetes: No Hx Cancer: Yes - RECTAL CA Hx Gastrointestinal Problems: No Hx Neurological Problems: No Review of Systems All Other Systems: negative except mentioned in HPI Physical Exam Vital Signs Date Time Temp Pulse Resp B/P (MAP) Pulse Ox O2 Delivery O2 Flow Rate FiO2 12/31/19 16:14 98.1 89 18 136/82 (100) 98 Room Air Sp02 EP Interpretation: reviewed, normal General Appearance: normal inspection, well appearing, no apparent distress, alert, GCS 15, obese Head: atraumatic ENT: normal ENT inspection, hearing grossly normal, normal voice Neck: normal inspection, full range of motion, supple, no bony tend Respiratory: normal inspection, lungs clear, normal breath sounds, no respiratory distress, no retraction, no wheezing Cardiovascular #1: regular rate, rhythm, no edema Gastrointestinal: normal inspection, normal bowel sounds, non tender, soft, no guarding, no hernia Genitourinary: no CVA tenderness Musculoskeletal: normal inspection, back normal, normal range of motion Neurologic: alert, motor strength/tone normal, court administrator III-XII nml as tested, oriented x3, responsive, speech normal, normal inspection Psychiatric: normal inspection, judgement/insight normal, mood/affect normal Medical Decision Making Diagnostic Impression: Primary Impression: Elevated lipase Additional Impression: Bladder wall thickening ER Course patient presented for abdominal pain. Differential diagnoses included ischemic bowel, appendicitis, perforated viscus, abdominal aortic aneurysm, inferior myocardial infarction, viral gastroenteritis among others.Because patient's complexity imaging studies, and laboratory testing ordered. Laboratory testing showed . Electrolytes Lipase was greater than 2000. White blood count was CT of the abdomen pelvis showed: Bladder wall thickening as well as normal- appearing pancreas without evident gallstones. Patient's pain does not appear to be consistent with pancreatitis however patient was advised to have lipase repeated. Patient appears to be stable for close outpatient follow up. Patient was given prescription for pain medications as well as oral antibiotics due to bladder wall thickening. He is advised that he would likely need to follow-up with urology for cystoscopy and further evaluation of bladder wall thickening. The patient is advised to follow up with primary care doctor in 1- 2 days for laboratory recheck and referral. Patient is advised to return if any worsening condition or if any changes in status that are concerning. This report is dictated with [employer] deicer inspector electric software which may occasionally lead to discrepancies related to use of this software. Last Vital Signs Date Time Temp Pulse Resp B/P (MAP) Pulse Ox O2 Delivery O2 Flow Rate FiO2 12/31/19 16:27 89 18 Room Air 12/31/19 16:27 98.1 136/82 98 Status: improved Disposition: HOME, SELF-CARE Condition: Stable Scripts Hydrocodone Bit/Acetaminophen 5-325* (NORCO 5-325 TABLET*) 1 Each Tablet 1 TAB ORAL Q6H PRN for FOR PAIN, #10 TAB 0 Refills Prov: Al Carey MD 12/31/19 Nitrofurantoin Monohyd/M-Cryst* (MACROBID 100 MG*) 100 Mg Capsule 100 MG ORAL EVERY 12 HOURS, #20 CAP Prov: Al Carey MD 12/31/19 Patient Instructions: Abdominal Pain, Adult Additional Instructions: Follow up with your doctor for repeat laboratory testing. Return if worse. Lipase greater than >2000. Al Carey MD December 31, 2019 19:21
[2019-12-31 19:23] VITALS: BP 136/82
== END 2019-12-31 19:20 | disposition home or self-care (01) ==
LOC: EMR 16:30
DX: E78.41 Elevated Lipoprotein(a) (principal); N32.89 Other specified disorders of bladder; Z85.048 Personal history of other malignant neoplasm of rectum, rectosigmoid junction, and anus; Z88.8 Allergy status to other drugs, medicaments and biological substances
CPT/HCPCS: 36415; 74177; 80053; 81003; 83690; 84484; 85025; 85610; 85730; 96374; 99284; J7040; Q9967; S0028